=== PATIENT | male | born 1935 | race African-American/Black ===

== ENCOUNTER 2018-01-14 14:31 | Inpatient (IN) | payer OTHER ==
[~2018-01-14] VITALS: Ht 175.3 cm; Wt 108.8 kg
[~2018-01-14 14:31] MED LIST: AMLODIPINE PO; ASPCH81 PO; ATOR-54 PO; CRS20 PO; GLC500 PO; GLIPIZIDE PO; LSN/2025 PO; PSYL55.43
[2018-01-14] MEDS ORDERED: DILTIAZEM HCL 5 MG/ML 5 ML VIAL IV STA (14:58)
[2018-01-14 15:05] LABS: ISTAT CREATININE 1.3 mg/dl (0.6-1.3); ISTAT IONIZED CALCIUM 1.18 mmol/l (1.12-1.32); ISTAT POTASSIUM 3.7 mEq/L (3.3-5.0)
[2018-01-14 15:08] LABS: BASO % 0.3 %; BASO ABS # 0.03 K/uL (0-0.2); EOS % 2.1 %; EOS ABS # 0.25 K/uL (0-0.5); HEMOGLOBIN 16.2 g/dL (14.0-18.0); IG# 0.04 K/uL (0.00-0.02); LYMPH % 16.1 %; LYMPH ABS # 1.93 K/uL (1.2-3.4); MEAN CELL VOLUME 83.6 fL (80-100); MEAN CORPUSCULAR HEMOGLOBIN 30.1 pg (25-34); MEAN PLATELET VOLUME 9.6 fL (7.4-10.4); MONO % 8.8 %; MONO ABS # 1.05 K/uL (0.11-0.59); NEUT % 72.4 %; NEUT ABS # 8.69 K/uL (1.4-6.5); PLATELET COUNT 234 K/uL (130-400); RED CELL DISTRIBUTION WIDTH CV 13.3 % (11.5-14.5); RED CELL DISTRIBUTION WIDTH SD 39.9 fL (36.4-46.3); WHITE BLOOD COUNT 11.99 K/uL (4.8-10.8)
--- NOTE | 2018-01-14 15:15 | EMERGENCY ROOM VISIT NOTE ---
History Report prepared by Neisha: Josefina Gibbs Under the Supervision of: Lluvia McgheeO. First contact with patient: 14:40 Chief Complaint: IRREGULAR HEARTBEAT Stated Complaint: IRREGULAR HEART BEAT History of Present Illness The patient is a 82 year old male who presents to the Emergency Room with complaints of a persistent irregular heartbeat which began prior to arrival. He reports that he was schedules to have a stress test today, noting that he has been having low sugar readings lately. The patient states that his lowest sugar reading was about 59. He notes that after he had his EKG performed today, they noticed an irregular heartbeat and suggested that he come to the Emergency Department for further evaluation. The patient reports a history of diabetes. Source of History: patient Onset: today Position: other (heart) Quality: other (irregular heartbeat) Timing: other (persistent) Review of Systems See HPI for pertinent positives & negatives. A total of 10 systems reviewed and were otherwise negative. Past Medical & Surgical Medical Problems: (1) Atrial flutter with rapid ventricular response (2) DIAB JOSUE WO COMPL, TYPE II OR UNSPEC TYPE, NOT UNCNTRLD (3) Diabetes (4) HYPERTENSION NOS (5) PURE HYPERCHOLESTEROLEM Family History Patient reports no known family medical history. Patient did not report any pertinent family history. Social History Smoking Status: Never Smoker Smokeless Tobacco Use: No Alcohol Use: occasionally Marital Status: Occupation Status: retired Current/Historical Medications Scheduled Amlodipine (Norvasc), 2.5 MG PO BID Aspirin (Aspirin Ec), 81 MG PO DAILY Cyanocobalamin (Vitamin B12 100 Mcg), 100 MCG PO DAILY Glipizide (Glipizide Er), 10 MG PO BID Hctz/Lisinopril (Lisinopril/Hctz 20/25 Mg), 1 TAB PO DAILY Metformin HCl (Metformin HCl ER), 1,000 MG PO BID Rosuvastatin Calcium (Crestor), 20 MG PO DAILY Scheduled PRN Psyllium (Metamucil), 1 DOSE PO DAILY PRN for Constipation Allergies Coded Allergies: Clonidine (Verified Allergy, Unknown, 10/22/09) Physical Exam Vital Signs Date Time Temp Pulse Resp B/P (MAP) Pulse Ox O2 Delivery O2 Flow Rate FiO2 01/14/18 16:36 77 20 150/77 98 Room Air 01/14/18 16:10 74 21 133/69 96 Room Air 01/14/18 15:40 82 21 126/69 96 Room Air 01/14/18 15:32 93 22 71/61 92 Room Air 01/14/18 15:25 86 20 84/62 93 Room Air 01/14/18 15:24 94 01/14/18 15:05 124 26 140/77 94 Room Air 01/14/18 14:53 118 27 170/71 93 Room Air 01/14/18 14:47 94 Room Air 01/14/18 14:47 94 Room Air 01/14/18 14:46 94 Room Air 01/14/18 14:35 36.9 71 20 114/59 94 Room Air Physical Exam GENERAL: Patient is awake, alert, and in no acute distress. Patient is resting comfortably and showing no signs of anxiety EYES: The conjunctivae are clear. The pupils are round and reactive. EARS, NOSE, MOUTH AND THROAT: The nose is without any evidence of any deformity. Mucous membranes are moist tongue is midline NECK: The neck is nontender and supple. RESPIRATORY: Normal respiratory effort is noted there is no evidence of wheezing rhonchi or rales CARDIOVASCULAR: Heart sounds are irregular and tachycardic. No definite murmur noted to auscultation. No rubs or gallops. Normal S1, normal S2. GASTROINTESTINAL: The abdomen is soft. Bowel sounds are present in all quadrants. Abdomen is nontender MUSCULOSKELETAL/EXTREMITIES: There is no evidence of gross deformity full range of motion is noted in the hips and shoulders SKIN: Pedal edema bilaterally. There is no obvious evidence of any rash. There are no petechiae, pallor or cyanosis noted. NEUROLOGIC: Patient is awake alert and oriented x3 Medical Decision & Procedures ER Provider Diagnostic Interpretation: Radiology results as stated below per my review and radiologist interpretation: SINGLE VIEW CHEST CLINICAL HISTORY: Weakness. Change in mental status FINDINGS: An AP, portable, upright chest radiograph is obtained. No prior studies are available for comparison at the time of dictation. The examination is degraded by portable technique and patient rotation. The the heart is enlarged and there is atherosclerotic calcification of the thoracic aorta. The pulmonary vasculature is noncongested. Nonspecific interstitial thickening is likely chronic. Airspace opacities are present at both lung bases, left greater than right. No large pleural effusion or pneumothorax is seen. The skeletal structures are osteopenic. Degenerative change and scoliosis are noted in the thoracic spine. IMPRESSION: 1. Cardiomegaly without radiographic evidence of congestive failure. 2. Bibasilar airspace opacities are identified, left greater than right. This could represent atelectasis versus an infectious/inflammatory pneumonitis. Clinical correlation will be required. Electronically signed by: Jarred Patrick M.D. 01/14/2018 3:33 PM Dictated Date/Time: 01/14/2018 3:31 PM Laboratory Results 01/14/18 14:50 Test 01/14/18 14:50 01/14/18 14:53 Est Creatinine Clear Calc Drug Dose 44.9 ml/min Estimated GFR () 49.2 Estimated GFR (Non- 42.5 BUN/Creatinine Ratio 14.4 (10-20) Calcium Level 9.6 mg/dl (8.5-10.1) Phosphorus Level 2.2 mg/dl (2.5-4.9) Magnesium Level 1.8 mg/dl (1.8-2.4) Total Bilirubin 0.7 mg/dl (0.2-1) Direct Bilirubin 0.2 mg/dl (0-0.2) Aspartate Amino Transf (AST/SGOT) 14 U/L (15-37) Alanine Aminotransferase (ALT/SGPT) 22 U/L (12-78) Alkaline Phosphatase 93 U/L (45-117) Total Creatine Kinase 141 U/L (39-308) Creatine Kinase MB 3.7 ng/ml (0.5-3.6) Creatine Kinase MB Ratio 2.6 (0-3.0) Troponin I 0.020 ng/ml (0-0.045) Pro-B-Type Natriuretic Peptide 220 pg/ml (0-1800) Total Protein 8.2 gm/dl (6.4-8.2) Albumin 4.0 gm/dl (3.4-5.0) Lipase 162 U/L (73-393) Thyroid Stimulating Hormone (TSH) 2.150 uIu/ml (0.300-4.500) Free Thyroxine 1.01 ng/dl (0.80-1.60) Bedside Hemoglobin 16.3 g/dl (14.0-18.0) Bedside Hematocrit 48 % (42-52) Bedside Sodium 140 mEq/L (135-144) Bedside Potassium 3.7 mEq/L (3.3-5.0) Bedside Chloride 101 mEq/L (101-112) Bedside Total CO2 23 mEq/l (24-31) Anion Gap 21.0 mmol/L (16-25) Bedside Blood Urea Nitrogen 23 mg/dl (7-18) Bedside Creatinine 1.3 mg/dl (0.6-1.3) Bedside Glucose (other) 136 mg/dl (70-99) Bedside Ionized Calcium (Holly) 1.18 mmol/l (1.12-1.32) Laboratory results per my review. Medications Administered Medications (Trade) Dose Ordered Sig/Brian Route Start Time Stop Time Status Last Admin Dose Admin Diltiazem HCl (Cardizem Inj) 10 mg NOW STAT IV 01/14/18 14:58 01/14/18 14:59 DC 01/14/18 15:09 10 MG Sodium Chloride 1,000 ml @ 999 mls/hr Q1H1M STAT IV 01/14/18 15:27 01/14/18 16:27 DC 01/14/18 15:27 999 MLS/HR ECG Per My Interpretation Indication: other (irregular heartbeat) Rate (beats per minute): 106 Rhythm: atrial flutter Findings: LBBB, other (ST segment elevation in anterior leads) Comparison ECG Date: no prior available ED Course 1441: The patient was evaluated in room B3. A complete history and physical examination were performed. 1458: Ordered Diltiazem HCl 10mg IV. 1527: Ordered Sodium Chloride 1000ml @ 999 mls/hr IV. 1548: I discussed the patient's case with Dr. Jimenez, [facility] hospitalist. The patient will be evaluated for further management. 1556: I reevaluated the patient and updated him on test findings and the treatment plan. He verbalized complete understanding and agreement. Medical Decision Prior records/ancillary studies reviewed. Triage Nursing notes reviewed. The patient's history was concerning for palpitations. Differential diagnosis: Etiologies such as premature contractions, electrolyte abnormality, cardiac dysrhythmia, thyroid dysfunction, pulmonary embolism, infection, gastrointestinal, as well as others were entertained. The patient is an 82-year-old male who presented to the emergency department at the request of his primary care physician. The patient was having symptoms of weakness and difficulty breathing with exertion. He was scheduled for a stress test. He was found to be in atrial fibrillation atrial flutter with rapid ventricular response. He was sent to the emergency department for further evaluation. He was treated with IV fluids as well as IV Cardizem. His symptoms improved significantly. I discussed patient's laboratory and radiographic studies with him. I also discussed his case with the on-call [facility] hospitalist. They have agreed to evaluate the patient in the emergency department for further management and disposition. Medication Reconcilliation Current Medication List: was personally reviewed by me Blood Pressure Screening Patient's blood pressure: Normal blood pressure Blood pressure disposition: Did not require urgent referral Consults Time Called: 1549 Consulting Physician: [facility] hospitalist Returned Call: [phone] I discussed the patient's case with [facility] hospitalist. The patient will be evaluated for further management. Impression Primary Impression: Atrial fibrillation with rapid ventricular response Additional Impression: Left bundle branch block Scribe Attestation The scribe's documentation has been prepared under my direction and personally reviewed by me in its entirety. I confirm that the note above accurately reflects all work, treatment, procedures, and medical decision making performed by me. Departure Information Dispostion Being Evaluated By Hospitalist Referrals Sim Blackman M.D. (PCP) Forms HOME CARE DOCUMENTATION FORM, IMPORTANT VISIT INFORMATION Patient Instructions My [facility] Health Problem Qualifiers
[2018-01-14 15:17] LABS: PTT PATIENT 27.2 SECONDS (21.0-31.0)
[2018-01-14] MEDS ORDERED: SODIUM CHLORIDE 0.9% 1000ML 1,000 ML IV STA (15:27)
[2018-01-14 15:28] LABS: CALCIUM 9.6 mg/dl (8.5-10.1); CREATININE 1.49 mg/dl (0.60-1.40); POTASSIUM 3.6 mmol/L (3.5-5.1)
--- NOTE | 2018-01-14 15:34 | DIAGNOSTIC IMAGING REPORT ---
SINGLE VIEW CHEST CLINICAL HISTORY: Weakness. Change in mental status FINDINGS: An AP, portable, upright chest radiograph is obtained. No prior studies are available for comparison at the time of dictation. The examination is degraded by portable technique and patient rotation. The the heart is enlarged and there is atherosclerotic calcification of the thoracic aorta. The pulmonary vasculature is noncongested. Nonspecific interstitial thickening is likely chronic. Airspace opacities are present at both lung bases, left greater than right. No large pleural effusion or pneumothorax is seen. The skeletal structures are osteopenic. Degenerative change and scoliosis are noted in the thoracic spine. IMPRESSION: 1. Cardiomegaly without radiographic evidence of congestive failure. 2. Bibasilar airspace opacities are identified, left greater than right. This could represent atelectasis versus an infectious/inflammatory pneumonitis. Clinical correlation will be required. Electronically signed by: Jarred Patrick M.D. 01/14/2018 3:33 PM Dictated Date/Time: 01/14/2018 3:31 PM
[2018-01-14 15:35] LABS: CKMB 3.7 ng/ml (0.5-3.6); PHOSPHORUS 2.2 mg/dl (2.5-4.9); TOTAL PROTEIN 8.2 gm/dl (6.4-8.2)
[2018-01-14] MEDS ORDERED: METF-841 PO (15:58)
[2018-01-14] MEDS ORDERED: GLIP-199 PO (15:58)
[2018-01-14] MEDS ORDERED: ASPI81TA28 PO (15:58)
[2018-01-14] MEDS ORDERED: ROSU40TA PO (15:58)
[2018-01-14] MEDS ORDERED: PSYL48.59 PO (15:58)
[2018-01-14] MEDS ORDERED: CYAN100T6 PO (15:58)
[2018-01-14] MEDS ORDERED: LSN/2025 PO (15:58)
[2018-01-14] MEDS ORDERED: AMLO-110 PO (15:58)
[2018-01-14] MEDS ORDERED: MAGNESIUM HYDROXIDE SUSP 30 ML UDC PO PRN (16:45)
[2018-01-14] MEDS ORDERED: GLUCOSE 40% GEL 15 GM TUBE PO PRN (16:45)
[2018-01-14] MEDS ORDERED: ALUMINUM/MAGNESIUM/SIMETH (MAALOX MAX) 30 ML UDC PO PRN (16:45)
[2018-01-14] MEDS ORDERED: GLUCOSE 10 TABS/TUBE PO PRN (16:45)
[2018-01-14] MEDS ORDERED: DEXTROSE 50% 50 ML SYR IV PRN (16:45)
[2018-01-14] MEDS ORDERED: ONDANSETRON INJ 2 MG/ML 2 ML VIAL IV PRN (16:45)
[2018-01-14] MEDS ORDERED: GLUCAGON FOR INJ 1 MG VIAL SQ PRN (16:45)
[2018-01-14] MEDS ORDERED: ACETAMINOPHEN 325 MG TAB PO PRN (16:45)
[2018-01-14] MEDS ORDERED: POLYETHYLENE (MIRALAX) 17 GM PACK PO PRN (16:45)
[2018-01-14] MEDS ORDERED: HydrALAZINE HCL 20 MG/ML VIAL IV. PRN (16:45)
--- NOTE | 2018-01-14 17:15 | History and Physical ---
History & Physical Date & Time of Service: Jan 14, 2018 at 16:50 Chief Complaint: Irregular Heart Beat Primary Care Physician: Sim Blackman M.D. History of Present Illness Source: patient, clinic records, hospital records This is an 82 y/o male with a history of HTN, HLD, DM II, prostate cancer, and CKD stage III who presented to the ED on 01/14 with new onset of atrial flutter. The patient had presented to his PCP office for a stress echocardiogram. His baseline EKG had apparently shown a wide complex tachycardia at 154 bpm. The patient was asymptomatic at that time. The EKG was reviewed by Dr. Tidwell and the patient was referred to the ED for further evaluation. EKG in ED shows atrial flutter. The patient denies any palpitations, chest pain, shortness of breath, weakness, fatigue, or dizziness. He denies any acute complaints. He denies any history of atrial flutter or an irregular rhythm to his knowledge. The patient denies fevers, chills, sweats, chest pain, palpitations, claudication, cough, wheezing, shortness of breath, nausea, vomiting, abdominal pain, dysuria, hematuria, urinary retention, paralysis, weakness, numbness and tingling. Past Medical/Surgical History Medical Problems: (1) Atrial flutter with rapid ventricular response (2) DIAB JOSUE WO COMPL, TYPE II OR UNSPEC TYPE, NOT UNCNTRLD (3) Diabetes (4) HYPERTENSION NOS (5) PURE HYPERCHOLESTEROLEM Prostate cancer CKD stage III Surgical history: Tonsillectomy as a child Family History Congestive heart failure Hypertension Social History Smoking Status: Never Smoker Smokeless Tobacco Use: Yes (1 can every 2-3 days) Alcohol Use: occasionally (special occasions only) Drug Use: none Marital Status: , in relationship Housing status: lives with significant other Occupational Status: retired Allergies Coded Allergies: Clonidine (Verified Allergy, Unknown, 10/22/09) Home Medications Scheduled Amlodipine (Norvasc), 2.5 MG PO BID Aspirin (Aspirin Ec), 81 MG PO DAILY Cyanocobalamin (Vitamin B12 100 Mcg), 100 MCG PO DAILY Glipizide (Glipizide Er), 10 MG PO BID Hctz/Lisinopril (Lisinopril/Hctz 20/25 Mg), 1 TAB PO DAILY Metformin HCl (Metformin HCl ER), 1,000 MG PO BID Rosuvastatin Calcium (Crestor), 20 MG PO DAILY Scheduled PRN Psyllium (Metamucil), 1 DOSE PO DAILY PRN for Constipation Review of Systems Constitutional: No fever, No chills, No sweats Eyes: No worsening of vision, No eye pain, No diplopia ENT: No hearing loss, No nasal symptoms, No trouble swallowing Respiratory: No cough, No wheezing, No shortness of breath Cardiovascular: No chest pain, No claudication, No palpitations Abdomen: No pain, No nausea, No vomiting Musculoskeletal: No joint pain, No muscle pain, No swelling Genitourinary - Male: No dysuria, No urinary retention, No hematuria Neurologic: No paralysis, No weakness, No numbness/tingling Integumentary: No rash, No itch, No color change Physical Exam Vital Signs Date Time Temp Pulse Resp B/P (MAP) Pulse Ox O2 Delivery O2 Flow Rate FiO2 01/14/18 16:36 77 20 150/77 98 Room Air 01/14/18 16:10 74 21 133/69 96 Room Air 01/14/18 15:40 82 21 126/69 96 Room Air 01/14/18 15:32 93 22 71/61 92 Room Air 01/14/18 15:25 86 20 84/62 93 Room Air 01/14/18 15:24 94 01/14/18 15:05 124 26 140/77 94 Room Air 01/14/18 14:53 118 27 170/71 93 Room Air 01/14/18 14:47 94 Room Air 01/14/18 14:47 94 Room Air 01/14/18 14:46 94 Room Air 01/14/18 14:35 36.9 71 20 114/59 94 Room Air General appearance: +Obese. Well-developed, well-nourished, no apparent distress Head: Normocephalic, atraumatic Eyes: Normal inspection, PERRL, EOMI ENT: Normal ENT inspection, hearing grossly normal, pharynx normal Neck: Supple, no JVD, trachea midline Respiratory/Chest: +Crackles in bases L>R. Normal breath sounds, no respiratory distress Cardiovascular: +Irregularly irregular, rate controlled. No gallop, no murmur Abdomen/GI: Normal bowel sounds, non-tender, soft Extremities/Musculoskeletal: +Trace pitting edema. Normal inspection, no calf tenderness Neurological/Psych: Alert, normal mood/affect, oriented x 3 Skin: Normal color, warm/dry, no rash Diagnostics Laboratory Results Results Past 24 Hours Test 01/14/18 14:50 01/14/18 14:53 Range/Units White Blood Count 11.99 4.8-10.8 K/uL Red Blood Count 5.38 4.7-6.1 M/uL Hemoglobin 16.2 14.0-18.0 g/dL Hematocrit 45.0 42-52 % Mean Corpuscular Volume 83.6 80-100 fL Mean Corpuscular Hemoglobin 30.1 25-34 pg Mean Corpuscular Hemoglobin Concent 36.0 32-36 g/dl Platelet Count 234 130-400 K/uL Mean Platelet Volume 9.6 7.4-10.4 fL Neutrophils (%) (Auto) 72.4 % Lymphocytes (%) (Auto) 16.1 % Monocytes (%) (Auto) 8.8 % Eosinophils (%) (Auto) 2.1 % Basophils (%) (Auto) 0.3 % Neutrophils # (Auto) 8.69 1.4-6.5 K/uL Lymphocytes # (Auto) 1.93 1.2-3.4 K/uL Monocytes # (Auto) 1.05 0.11-0.59 K/uL Eosinophils # (Auto) 0.25 0-0.5 K/uL Basophils # (Auto) 0.03 0-0.2 K/uL RDW Standard Deviation 39.9 36.4-46.3 fL RDW Coefficient of Variation 13.3 11.5-14.5 % Immature Granulocyte % (Auto) 0.3 % Immature Granulocyte # (Auto) 0.04 0.00-0.02 K/uL Prothrombin Time 10.5 9.0-12.0 SECONDS Prothromb Time International Ratio 1.0 0.9-1.1 Activated Partial Thromboplast Time 27.2 21.0-31.0 SECONDS Partial Thromboplastin Ratio 1.0 Sodium Level 137 136-145 mmol/L Potassium Level 3.6 3.5-5.1 mmol/L Chloride Level 104 98-107 mmol/L Carbon Dioxide Level 22 21-32 mmol/L Anion Gap 11.0 21.0 16-25 mmol/L Blood Urea Nitrogen 21 7-18 mg/dl Creatinine 1.49 0.60-1.40 mg/dl Est Creatinine Clear Calc Drug Dose 44.9 ml/min Estimated GFR () 49.2 Estimated GFR (Non- 42.5 BUN/Creatinine Ratio 14.4 10-20 Random Glucose 132 70-99 mg/dl Calcium Level 9.6 8.5-10.1 mg/dl Phosphorus Level 2.2 2.5-4.9 mg/dl Magnesium Level 1.8 1.8-2.4 mg/dl Total Bilirubin 0.7 0.2-1 mg/dl Direct Bilirubin 0.2 0-0.2 mg/dl Aspartate Amino Transf (AST/SGOT) 14 15-37 U/L Alanine Aminotransferase (ALT/SGPT) 22 12-78 U/L Alkaline Phosphatase 93 45-117 U/L Total Creatine Kinase 141 39-308 U/L Creatine Kinase MB 3.7 0.5-3.6 ng/ml Creatine Kinase MB Ratio 2.6 0-3.0 Troponin I 0.020 0-0.045 ng/ml Pro-B-Type Natriuretic Peptide 220 0-1800 pg/ml Total Protein 8.2 6.4-8.2 gm/dl Albumin 4.0 3.4-5.0 gm/dl Lipase 162 73-393 U/L Thyroid Stimulating Hormone (TSH) 2.150 0.300-4.500 uIu/ml Free Thyroxine 1.01 0.80-1.60 ng/dl Bedside Hemoglobin 16.3 14.0-18.0 g/dl Bedside Hematocrit 48 42-52 % Bedside Sodium 140 135-144 mEq/L Bedside Potassium 3.7 3.3-5.0 mEq/L Bedside Chloride 101 101-112 mEq/L Bedside Total CO2 23 24-31 mEq/l Bedside Blood Urea Nitrogen 23 7-18 mg/dl Bedside Creatinine 1.3 0.6-1.3 mg/dl Bedside Glucose (other) 136 70-99 mg/dl Bedside Ionized Calcium (Holly) 1.18 1.12-1.32 mmol/l Diagnostic Radiology Reviewed the following studies and agree with interpretation as follows: SINGLE VIEW CHEST CLINICAL HISTORY: Weakness. Change in mental status FINDINGS: An AP, portable, upright chest radiograph is obtained. No prior studies are available for comparison at the time of dictation. The examination is degraded by portable technique and patient rotation. The the heart is enlarged and there is atherosclerotic calcification of the thoracic aorta. The pulmonary vasculature is noncongested. Nonspecific interstitial thickening is likely chronic. Airspace opacities are present at both lung bases, left greater than right. No large pleural effusion or pneumothorax is seen. The skeletal structures are osteopenic. Degenerative change and scoliosis are noted in the thoracic spine. IMPRESSION: 1. Cardiomegaly without radiographic evidence of congestive failure. 2. Bibasilar airspace opacities are identified, left greater than right. This could represent atelectasis versus an infectious/inflammatory pneumonitis. Clinical correlation will be required. EKG Reviewed EKG and agree with interpretation as follows: 106 bpm, atrial flutter, LBBB Impression Assessment and Plan 82 y/o male with a history of HTN, HLD, DM II, prostate cancer, and CKD stage III who presented to the ED on 01/14 with new onset of atrial flutter. Pt afebrile on arrival. Pt at times tachycardic up to 150s, then back down to 80s. Pt received diltiazem 10 mg IV x 1 in ED. Pt denies any symptoms. EKG shows atrial flutter and LBBB. No previous EKG to compare, unknown chronicity of LBBB. Troponin negative. CXR with bibasilar airspace opacities L>R. Creatinine mildly elevated above baseline. Potassium, magnesium, TSH WNL. New onset atrial flutter, RVR -Admit to telemetry for observation -Trend cardiac enzymes q8h x 3. First set negative -Echocardiogram -Consult cardiology, appreciate recs -KCl 40 mEq PO x 1. Potassium 3.6 on admission, goal > 4.0 -Heparin drip for now Fluid overload--unknown if h/o CHF, echo ordered -Hold further IVF, received 1L NSS bolus in ED EITAN on CKD stage III -Baseline creatinine 1.2-1.3 -Creatinine 1.49 on admission -Hold lisinopril/HCTZ for now HTN, HLD--stable -Continue ASA, Norvasc 2.5 mg PO BID, Crestor 20 mg PO hs -Lisinopril/HCTZ held due to EITAN -Cover with hydralazine 10 mg IV q6h prn SBP >180 DM II--HgbA1c 7.3 on 12/28/17 -Hold glipizide and metformin. Pt reports increased hypoglycemic episodes. Consider discontinuing glipizide as outpatient as well -Insulin sliding scale -Check BSGs q ac and qhs Prostate cancer--noted. Pt denies any h/o prostatectomy, chemo or radiation. Being monitored by urology DVT prophylaxis -Heparin drip -THERESA hose and SCDs Code Status -Level I, FULL RESUSCITATION STATUS I personally interviewed and examined the patient. I agree with history of present illness and physical exam mentioned above, I also performed my own history taking and examination. Past medical history and review of system has been obtained by myself I reviewed all pertinent labs and studies Reviewed current medications I discussed and formulated of the assessment and plan mentioned above. Please refer to the Summary mentioned below. 82-year-old man with past medical history of hypertension, diabetes mellitus type 2, prostate cancer, dyslipidemia, chronic kidney disease stage III. Patient was doing a stress echo and his PCP office when he was found to have atrial fibrillation with RVR, he was sent to the ED in the ED was found to have atrial flutter, EKG from PCP office is not available. Patient was started on heparin, 2D echo was ordered, pitch worker consulted. Patient also was instructed to have sleep study as an outpatient Currently rate controlled and appeared to be comfortable General Appearance: not in acute distress Eyes: normal Sclerae, extraocular muscle intact ENT: hearing grossly normal Neck: supple Respiratory/Chest: normal air entry bilateral ,no respiratory distress, no accessory muscle use Cardiovascular: Irregular irregularity, currently rate controlled no murmur Abdomen: non tender, soft, no masses Extremities: no edema musculoskeletal: no significant swelling or inflammation in any joint Neurologic/Psychiatric: Awake alert oriented times place and person moves all extremities sensation intact cranial nerves II-12 appear to be intact Skin: normal color, warm/dry, no rash Carlyle Be MD, [facility] Hospitalist group Resuscitation Status VTE Prophylaxis Will order VTE Prophylaxis: Yes
[2018-01-14 18:00] VITALS: BP 137/72; PULSE 97; TEMP 36.6; O2SAT 97
[2018-01-14 18:11] VITALS: Ht 175.3 cm; Wt 108.8 kg
[2018-01-14 18:12] VITALS: BP 137/72; PULSE 103
[2018-01-14] MEDS ORDERED: POTASSIUM CHLORIDE 20 MEQ TABCR PO ONE (18:15)
[2018-01-14 18:23] VITALS: O2SAT 97
[2018-01-14] MEDS ORDERED: IV FLUIDS COMPLETED PRN (18:45)
[2018-01-14 19:23] LABS: BASO % 0.3 %; BASO ABS # 0.03 K/uL (0-0.2); EOS % 2.5 %; EOS ABS # 0.27 K/uL (0-0.5); IG# 0.02 K/uL (0.00-0.02); LYMPH % 17.9 %; LYMPH ABS # 1.93 K/uL (1.2-3.4); MEAN CELL VOLUME 84.8 fL (80-100); MEAN CORPUSCULAR HEMOGLOBIN 29.6 pg (25-34); MEAN PLATELET VOLUME 9.6 fL (7.4-10.4); MONO % 7.1 %; MONO ABS # 0.77 K/uL (0.11-0.59); NEUT ABS # 7.76 K/uL (1.4-6.5); PLATELET COUNT 211 K/uL (130-400); RED CELL DISTRIBUTION WIDTH CV 13.4 % (11.5-14.5); RED CELL DISTRIBUTION WIDTH SD 41.1 fL (36.4-46.3); WHITE BLOOD COUNT 10.78 K/uL (4.8-10.8)
[2018-01-14 19:36] LABS: PTT PATIENT 27.8 SECONDS (21.0-31.0)
[2018-01-14] MEDS: HEPARIN 25,000 UNIT/500ML D5W 500 ML IV SCH (19:39)
[2018-01-14 19:40] LABS: MEAN CORPUSCULAR HGB CONC 34.9 g/dl (32-36)
[2018-01-14 20:02] VITALS: BP 107/66; PULSE 79; TEMP 36.4; O2SAT 95
[2018-01-14] MEDS: METOPROLOL TARTRATE 25 MG TAB PO SCH (20:25)
[2018-01-14] MEDS: INSULIN ASPART 100 UNITS/ML 3 ML PEN SC SCH (20:34)
[2018-01-14] MEDS ORDERED: AMLODIPINE BESYLATE 5 MG TAB PO SCH (21:00)
[2018-01-14 23:16] LABS: CKMB 2.8 ng/ml (0.5-3.6)
[2018-01-14 23:33] VITALS: BP 120/68; PULSE 75; TEMP 36.5; O2SAT 96
[2018-01-15] VITALS (11 sets, daily range): BP systolic 112–156; BP diastolic 53–86; PULSE 65–89; TEMP 36.3–36.8; O2SAT 94–99
[2018-01-15 02:28] LABS: PTT PATIENT 47.2 SECONDS (21.0-31.0)
[2018-01-15 07:08] LABS: HEMATOCRIT 42.2 % (42-52); HEMOGLOBIN 14.9 g/dL (14.0-18.0); MEAN CELL VOLUME 83.9 fL (80-100); MEAN CORPUSCULAR HEMOGLOBIN 29.6 pg (25-34); MEAN CORPUSCULAR HGB CONC 35.3 g/dl (32-36); MEAN PLATELET VOLUME 10.1 fL (7.4-10.4); PLATELET COUNT 209 K/uL (130-400); RED CELL DISTRIBUTION WIDTH CV 13.3 % (11.5-14.5); RED CELL DISTRIBUTION WIDTH SD 40.2 fL (36.4-46.3); WHITE BLOOD COUNT 8.16 K/uL (4.8-10.8)
[2018-01-15 07:42] LABS: CALCIUM 8.9 mg/dl (8.5-10.1); CREATININE 1.28 mg/dl (0.60-1.40); POTASSIUM 3.8 mmol/L (3.5-5.1)
[2018-01-15] MEDS: ASPIRIN 81 MG ECTAB PO SCH (07:42)
[2018-01-15] MEDS: METOPROLOL TARTRATE 25 MG TAB PO SCH ×2 (07:43→20:11)
[2018-01-15] MEDS: CYANOCOBALAMIN 100 MCG TAB (VIT B-12) PO SCH (07:43)
[2018-01-15] MEDS: ROSUVASTATIN CALCIUM 20 MG TAB PO SCH (07:44)
[2018-01-15 07:50] LABS: CKMB 2.7 ng/ml (0.5-3.6); PHOSPHORUS 2.8 mg/dl (2.5-4.9)
[2018-01-15] MEDS: INSULIN ASPART 100 UNITS/ML 3 ML PEN SC SCH ×4 (07:52→21:00)
[2018-01-15] MEDS ORDERED: MAGNESIUM SULFATE 1GM / D5W 100 ML IV STA (08:08)
--- NOTE | 2018-01-15 10:25 | ECHOCARDIOGRAM REPORT ---
*NOTICE TO RECEIVING [employer] This information is strictly Confidential and protected under [place] law. [place] law prohibits you from making any further disclosure of this information unless further disclosure is expressly permitted by the written consent of the person to whom it pertains or is authorized by law. A general authorization for the release of medical or other information is not sufficient for this purpose. Hospital accepts no responsibility if the information is made available to any other person, INCLUDING THE PATIENT. Interpretation Summary * Name: ANASTACIO WOOTEN Study Date: 01/15/2018 07:07 AM BP: 116/62 mmHg * Patient Location: [facility] HR: 83 * : 1935 (M/d/yyyy) Gender: Male Height: 69 in * Age: 82 yrs Ethnicity: AA Weight: 240 lb * Ordering Physician: Lina Saxena PA-C * Performed By: Jud Latham RDCS * * Reason For Study: A-Flutter * BSA: 2.2 m2 * -- Conclusions -- * Left ventricular systolic function is severely reduced. * Ejection Fraction = 20-25%. 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 Other stanford hypokinetic. * There is mild mitral regurgitation. Procedure Details * A complete two-dimensional transthoracic echocardiogram was performed (2D, M-mode, Doppler and color flow Doppler). Left Ventricle * The left ventricle is mildly dilated. * There is normal left ventricular wall thickness. * Ejection Fraction = 20-25%. * Left ventricular systolic function is severely reduced. 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 Other stanford hypokinetic. * Septal motion is consistent with conduction abnormality. Right Ventricle * The right ventricle is grossly normal size. * The right ventricular systolic function is normal as assessed by tricuspid annular plane systolic excursion (TAPSE) (normal >1.5 cm). Atria * The left atrium is mildly dilated. * Right atrium not well visualized. * There is no evidence of atrial septal defect, but resolution does not allow assessment for a patent foramen ovale. Mitral Valve * The mitral valve is grossly normal. * There is no mitral valve stenosis. * There is mild mitral regurgitation. Tricuspid Valve * The tricuspid valve is not well visualized, but is grossly normal. * There is no tricuspid stenosis. * Significant tricuspid regurgitation is absent. Aortic Valve * The aortic valve is trileaflet. * The aortic valve opens well. * Aortic valve sclerosis moderate, without significant aortic valvular stenosis. * No aortic regurgitation is present. Pulmonic Valve * The pulmonary valve is not well seen, but the Doppler examination is normal without significant regurgitation or stenosis. Great Vessels * Borderline aortic root dilatation. * The pulmonary is not well visualized. Pericardium/Pleural * There is no pericardial effusion. Great Vessels * Normal inferior vena cava size and collapsability with sniff indicates a normal right atrial pressure of 3 mmHg MMode 2D Measurements and Calculations IVSd 1.1 cm LVIDd 5.5 cm LVIDs 4.8 cm LVPWd 1.2 cm IVS/LVPW 0.95 FS 12.9 % EDV(Teich) 148.9 ml ESV(Teich) 108.2 ml EF(Teich) 27.3 % EDV(cubed) 168.5 ml ESV(cubed) 111.5 ml EF(cubed) 33.8 % LV mass(C)d 256.1 grams LV mass(C)dI 114.7 grams/m\S\2 SV(Teich) 40.6 ml SI(Teich) 18.2 ml/m\S\2 SV(cubed) 57.0 ml SI(cubed) 25.5 ml/m\S\2 Ao root diam 3.4 cm Ao root area 9.2 cm\S\2 ACS 1.8 cm LA dimension 3.6 cm asc Aorta Diam 2.9 cm LA/Ao 1.0 LVOT diam 2.1 cm LVOT area 3.4 cm\S\2 LVAd ap4 34.8 cm\S\2 LVLd ap4 8.4 cm EDV(MOD-sp4) 119.8 ml EDV(sp4-el) 122.2 ml LVAs ap4 30.3 cm\S\2 LVLs ap4 8.0 cm ESV(MOD-sp4) 94.4 ml ESV(sp4-el) 97.9 ml EF(MOD-sp4) 21.2 % EF(sp4-el) 19.8 % LVAd ap2 41.8 cm\S\2 LVLd ap2 9.3 cm EDV(MOD-sp2) 154.4 ml EDV(sp2-el) 158.5 ml LVAs ap2 34.2 cm\S\2 LVLs ap2 8.1 cm ESV(MOD-sp2) 119.2 ml ESV(sp2-el) 122.2 ml EF(MOD-sp2) 22.8 % EF(sp2-el) 22.9 % LVLd %diff 9.8 % EDV(MOD-bp) 143.2 ml LVLs %diff 2.4 % ESV(MOD-bp) 107.7 ml EF(MOD-bp) 24.8 % SV(MOD-sp4) 25.4 ml SI(MOD-sp4) 11.4 ml/m\S\2 SV(MOD-sp2) 35.2 ml SI(MOD-sp2) 15.8 ml/m\S\2 SV(MOD-bp) 35.5 ml SI(MOD-bp) 15.9 ml/m\S\2 SV(sp4-el) 24.2 ml SI(sp4-el) 10.9 ml/m\S\2 SV(sp2-el) 36.3 ml SI(sp2-el) 16.3 ml/m\S\2 Doppler Measurements and Calculations MV E max madi 123.7 cm/sec MV dec time 0.15 sec Ao V2 max 108.6 cm/sec Ao max PG 4.7 mmHg Ao max PG (full) 1.7 mmHg MILI(V,A) 2.7 cm\S\2 MILI(V,D) 2.7 cm\S\2 LV V1 max PG 3.0 mmHg LV V1 max 87.3 cm/sec PA V2 max 67.9 cm/sec PA max PG 1.8 mmHg PA acc slope 745.1 cm/sec\S\2 PA acc time 0.08 sec PI max madi 165.6 cm/sec PI max PG 11.0 mmHg PI dec slope 303.3 cm/sec\S\2 PI P1/2t 159.9 msec TR max madi 203.6 cm/sec PA pr(Accel) 44.1 mmHg
--- NOTE | 2018-01-15 10:53 | Hospitalist Progress Note ---
Hospitalist Progress Note Date of Service January 15, 2018. (Nayeli Wilson .MAURISIO) Subjective Pt evaluation today including: conversation w/ patient, physical exam, chart review, lab review, conversation w/ benefits sales consultant, review of inpatient medication list Voiding: no voiding problems Mr. Smith denies any symptoms and did not have any at the time of his rapid heart rate. He did have a brief 9 beat run of Vtach this morning which was also asymptomatic. Dr. Dacosta was bedside to discuss his recommendation for a cath this afternoon, which Mr. Smith agreed to. He did say that in the past he has felt like he was hypoglycemic when he wasn't and wondered if that might have been something to do with his heart. ROS Constitutional: no chills, aches, sweats or fever Respiratory: no sob,cough, sputum, or wheezing Cardiac: no chest pain, palpitations, edema, orthopnea or lightheadedness GI: no abdominal pain, nausea, vomiting, diarrhea or constipation : no dysuria or hesitancy Extremities: no joint pain or weakness Skin: no rash All other systems reviewed and negative (Nayeli Wilson CRNP) Medications Medications Administered Medications (Trade) Dose Ordered Sig/Brian Route Start Time Stop Time Status Last Admin Dose Admin Diltiazem HCl (Cardizem Inj) 10 mg NOW STAT IV 01/14/18 14:58 01/14/18 14:59 DC 01/14/18 15:09 10 MG Sodium Chloride 1,000 ml @ 999 mls/hr Q1H1M STAT IV 01/14/18 15:27 01/14/18 16:27 DC 01/14/18 15:27 999 MLS/HR Aspirin (Ecotrin Tab) 81 mg DAILY PO 01/15/18 09:00 02/14/18 08:59 01/15/18 07:42 81 MG Cyanocobalamin (Vitamin B-12 Tab) 100 mcg DAILY PO 01/15/18 09:00 02/14/18 08:59 01/15/18 07:43 100 MCG Rosuvastatin Calcium (Crestor Tab) 20 mg DAILY PO 01/15/18 09:00 02/14/18 08:59 01/15/18 07:44 20 MG Potassium Chloride (Klor-Con Tab) 40 meq 1815 ONCE PO 01/14/18 18:15 01/14/18 18:16 DC 01/14/18 18:43 40 MEQ Insulin Aspart (novoLOG ASPART) SLIDING SCALE G... ACHS SC 01/14/18 21:00 02/13/18 20:59 01/15/18 07:52 6 UNITS Metoprolol Tartrate (Lopressor Tab) 12.5 mg BID PO 01/14/18 21:00 02/13/18 20:59 01/15/18 07:43 12.5 MG Heparin Sodium/ Dextrose 500 ml @ 31 mls/hr Q16H8M IV 01/14/18 19:15 02/13/18 19:14 01/14/18 19:39 31 MLS/HR (Nayeli Wilson, MAURISIO) Objective Vital Signs Date Time Temp Pulse Resp B/P (MAP) Pulse Ox O2 Delivery O2 Flow Rate FiO2 01/15/18 06:26 86 17 113/73 (86) 96 Room Air 01/15/18 04:05 36.4 87 18 116/62 (80) 94 Room Air 01/15/18 04:00 Room Air 01/15/18 00:01 Room Air 01/14/18 23:33 36.5 75 17 120/68 (85) 96 Room Air 01/14/18 20:02 36.4 79 18 107/66 (80) 95 Room Air 01/14/18 20:00 Room Air 01/14/18 18:23 97 Room Air 01/14/18 18:12 103 18 137/72 01/14/18 18:00 36.6 97 18 137/72 (93) 97 Room Air 01/14/18 17:04 97 22 135/70 94 Room Air 01/14/18 16:36 77 20 150/77 98 Room Air 01/14/18 16:10 74 21 133/69 96 Room Air 01/14/18 15:40 82 21 126/69 96 Room Air 01/14/18 15:32 93 22 71/61 92 Room Air 01/14/18 15:25 86 20 84/62 93 Room Air 01/14/18 15:24 94 01/14/18 15:05 124 26 140/77 94 Room Air 01/14/18 14:53 118 27 170/71 93 Room Air 01/14/18 14:47 94 Room Air 01/14/18 14:47 94 Room Air 01/14/18 14:46 94 Room Air 01/14/18 14:35 36.9 71 20 114/59 94 Room Air (Nayeli Wilson CRNP) Physical Exam Notes: General: no distress Eyes: normal inspection, PERLL Respiratory: chest non tender, clear to auscultation, normal breath sounds, no respiratory distress, no accessory muscle use Cardiac: regular rate and rhythm, no rub or gallop, no murmur, no edema, no jvd GI/: active bowel sounds, no abd pain or tenderness, soft, non distended Extremities: normal range of motion, normal strength, non tender Neuro/Psych: alert and oriented x 3, normal mood and affect Skin: normal color, dry (Nayeli Wilson CRNP) Laboratory Results Last 24 Hours Test 01/14/18 14:50 01/14/18 14:53 01/14/18 16:50 01/14/18 19:02 White Blood Count 11.99 K/uL 10.78 K/uL Red Blood Count 5.38 M/uL 5.07 M/uL Hemoglobin 16.2 g/dL 15.0 g/dL Hematocrit 45.0 % 43.0 % Mean Corpuscular Volume 83.6 fL 84.8 fL Mean Corpuscular Hemoglobin 30.1 pg 29.6 pg Mean Corpuscular Hemoglobin Concent 36.0 g/dl 34.9 g/dl Platelet Count 234 K/uL 211 K/uL Mean Platelet Volume 9.6 fL 9.6 fL Neutrophils (%) (Auto) 72.4 % 72.0 % Lymphocytes (%) (Auto) 16.1 % 17.9 % Monocytes (%) (Auto) 8.8 % 7.1 % Eosinophils (%) (Auto) 2.1 % 2.5 % Basophils (%) (Auto) 0.3 % 0.3 % Neutrophils # (Auto) 8.69 K/uL 7.76 K/uL Lymphocytes # (Auto) 1.93 K/uL 1.93 K/uL Monocytes # (Auto) 1.05 K/uL 0.77 K/uL Eosinophils # (Auto) 0.25 K/uL 0.27 K/uL Basophils # (Auto) 0.03 K/uL 0.03 K/uL RDW Standard Deviation 39.9 fL 41.1 fL RDW Coefficient of Variation 13.3 % 13.4 % Immature Granulocyte % (Auto) 0.3 % 0.2 % Immature Granulocyte # (Auto) 0.04 K/uL 0.02 K/uL Prothrombin Time 10.5 SECONDS 10.6 SECONDS Prothromb Time International Ratio 1.0 1.0 Activated Partial Thromboplast Time 27.2 SECONDS 27.8 SECONDS Partial Thromboplastin Ratio 1.0 1.1 Sodium Level 137 mmol/L Potassium Level 3.6 mmol/L Chloride Level 104 mmol/L Carbon Dioxide Level 22 mmol/L Anion Gap 11.0 mmol/L 21.0 mmol/L Blood Urea Nitrogen 21 mg/dl Creatinine 1.49 mg/dl Est Creatinine Clear Calc Drug Dose 44.9 ml/min Estimated GFR () 49.2 Estimated GFR (Non- 42.5 BUN/Creatinine Ratio 14.4 Random Glucose 132 mg/dl Calcium Level 9.6 mg/dl Phosphorus Level 2.2 mg/dl Magnesium Level 1.8 mg/dl Total Bilirubin 0.7 mg/dl Direct Bilirubin 0.2 mg/dl Aspartate Amino Transf (AST/SGOT) 14 U/L Alanine Aminotransferase (ALT/SGPT) 22 U/L Alkaline Phosphatase 93 U/L Total Creatine Kinase 141 U/L Creatine Kinase MB 3.7 ng/ml Creatine Kinase MB Ratio 2.6 Troponin I 0.020 ng/ml Pro-B-Type Natriuretic Peptide 220 pg/ml Total Protein 8.2 gm/dl Albumin 4.0 gm/dl Lipase 162 U/L Thyroid Stimulating Hormone (TSH) 2.150 uIu/ml Free Thyroxine 1.01 ng/dl Bedside Hemoglobin 16.3 g/dl Bedside Hematocrit 48 % Bedside Sodium 140 mEq/L Bedside Potassium 3.7 mEq/L Bedside Chloride 101 mEq/L Bedside Total CO2 23 mEq/l Bedside Blood Urea Nitrogen 23 mg/dl Bedside Creatinine 1.3 mg/dl Bedside Glucose (other) 136 mg/dl Bedside Ionized Calcium (Holly) 1.18 mmol/l Urine Color YELLOW Urine Appearance CLEAR Urine pH 5.0 Urine Specific [place] 1.017 Urine Protein 1+ Urine Glucose (UA) NEG Urine Ketones NEG Urine Occult Blood NEG Urine Nitrite NEG Urine Bilirubin NEG Urine Urobilinogen NEG Urine Leukocyte Esterase TRACE Urine WBC (Auto) 1-5 /hpf Urine RBC (Auto) 0-4 /hpf Urine Hyaline Casts (Auto) 1-5 /lpf Urine Epithelial Cells (Auto) 10-20 /lpf Urine Bacteria (Auto) NEG Test 01/14/18 20:28 01/14/18 22:43 01/15/18 01:21 01/15/18 06:51 Bedside Glucose 127 mg/dl Total Creatine Kinase 123 U/L 123 U/L Creatine Kinase MB 2.8 ng/ml 2.7 ng/ml Creatine Kinase MB Ratio 2.3 2.2 Troponin I 0.036 ng/ml 0.033 ng/ml Activated Partial Thromboplast Time 47.2 SECONDS Partial Thromboplastin Ratio 1.8 White Blood Count 8.16 K/uL Red Blood Count 5.03 M/uL Hemoglobin 14.9 g/dL Hematocrit 42.2 % Mean Corpuscular Volume 83.9 fL Mean Corpuscular Hemoglobin 29.6 pg Mean Corpuscular Hemoglobin Concent 35.3 g/dl RDW Standard Deviation 40.2 fL RDW Coefficient of Variation 13.3 % Platelet Count 209 K/uL Mean Platelet Volume 10.1 fL Sodium Level 137 mmol/L Potassium Level 3.8 mmol/L Chloride Level 105 mmol/L Carbon Dioxide Level 24 mmol/L Anion Gap 8.0 mmol/L Blood Urea Nitrogen 20 mg/dl Creatinine 1.28 mg/dl Est Creatinine Clear Calc Drug Dose 52.1 ml/min Estimated GFR () 59.2 Estimated GFR (Non- 51.1 BUN/Creatinine Ratio 15.5 Random Glucose 150 mg/dl Calcium Level 8.9 mg/dl Phosphorus Level 2.8 mg/dl Magnesium Level 1.7 mg/dl Test 01/15/18 07:29 Bedside Glucose 159 mg/dl (Nayeli Wilson, MAURISIO) Assessment and Plan Mr. Smith is an 82 year old man here for A.flutter with RVR A.flutter RVR - continue telemetry monitoring - consulted cardiology - plan is for cath this afternoon. - Echo showed: Left ventricular systolic function is severely reduced. * Ejection Fraction = 20-25%. 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 Other stanford hypokinetic. * There is mild mitral regurgitation. - NSR since converting in the ED last evening except for 9 beat run of Vtach - will correct electrolytes as below - continue Heparin gtt until after cath, then convert to NOAC - continue ASA, BB, will restart lisinopril/hctz after cath Hypomagnesemia - 1 gm mag IV - repeat am EITAN on CKD stage III - resolved -Baseline creatinine 1.2-1.3 -Creatinine 1.49 on admission, now wnl -Hold lisinopril/HCTZ until after cath HTN, HLD--stable -Continue ASA, Norvasc 2.5 mg PO BID, Crestor 20 mg PO hs -Lisinopril/HCTZ held due to EITAN -Cover with hydralazine 10 mg IV q6h prn SBP >180 DM II--HgbA1c 7.3 on 12/28/17 -Hold glipizide and metformin. -Insulin sliding scale -Check BSGs q ac and qhs Prostate cancer--noted. Pt denies any h/o prostatectomy, chemo or radiation. Being monitored by urology DVT prophylaxis -Heparin drip -THERESA thompson and SCDs Code Status -Level I, FULL RESUSCITATION STATUS (Nayeli Wilson ., MAURISIO) MACHINE PULLER Physician Supervision Note: I interviewed and examined the patient. Discussed with Nayeli Wilson NP and agree with findings and plan as documented in the note. Any exceptions or clarifications are listed here: None This patient presented with atrial flutter echocardiogram showed severe depression of his EF catheterization revealed three-vessel coronary disease with plans for catheterization and intervention on 01/16 patient otherwise no complaints he is not longer short of breath is no chest pain vital signs show temp 36 4 pulse 86 respiration rate 17 BP 113/73 Cardiac exam is regular lungs are clear without crackles at the base abdomen is normoactive bowel sounds there is a strong smell urine in his room and a urine culture was obtained results are pending Documented By: Umesh Vasquez (Umesh Vasquez M.D.)
[2018-01-15] MEDS: HEPARIN 25,000 UNIT/500ML D5W 500 ML IV SCH (10:56)
[2018-01-15] MEDS ORDERED: NiCARDipine HCL INJ 2.5 MG/ML 10 ML AMP ONE (11:39)
[2018-01-15] MEDS ORDERED: NITROGLYCERIN/D5W 100MCG/ML 20ML SYR ONE (11:39)
[2018-01-15] MEDS ORDERED: HEPARIN SOD (PORCINE) 1000 UNIT/ML 10 ML VIAL ONE (11:39)
[2018-01-15] MEDS ORDERED: FENTANYL CITRATE INJ 50 MCG/1 ML 2 ML VIAL ONE (11:40)
[2018-01-15] MEDS ORDERED: MIDAZOLAM HCL 1 MG/ML 2ML VIAL ONE (11:40)
[2018-01-15] MEDS ORDERED: ADENOSINE IV SOLN 3 MG/ML 20 ML VIAL ONE (12:45)
--- NOTE | 2018-01-15 14:09 | Post Sedation Assessment ---
Post Sedation Assessment General Date of Sedation January 15, 2018. Vital Signs: Vital Signs Past 12 Hours Date Time Temp Pulse Resp B/P (MAP) Pulse Ox O2 Delivery O2 Flow Rate FiO2 01/15/18 13:55 79 16 156/77 (103) 97 Room Air 01/15/18 13:41 79 16 122/86 (98) 99 Room Air 01/15/18 13:26 36.5 65 16 144/82 (102) 95 Room Air 01/15/18 13:10 62 16 118/60 (79) 96 Room Air 01/15/18 12:55 65 16 122/65 (84) 96 Room Air 01/15/18 08:00 Room Air 01/15/18 06:26 86 17 113/73 (86) 96 Room Air 01/15/18 04:05 36.4 87 18 116/62 (80) 94 Room Air 01/15/18 04:00 Room Air Post Procedure Recovery Score Activity: (2) Moves 4 extremities * Respiration: (2) Deep breath/cough Circulation: (2) +/-20% PreAnes Value Consciousness: (2) Fully Awake Oxygen Saturation: (2) > 92% On Room Air Post Anesthesia Score: 10 Discharge Sedation Level of Care: Fast Track Phase II Post Sedation Plan On clinical assessment, the patient appears to have tolerated the sedation without complications. Patient is recovering as anticipated. Patient will continue to be monitored by nursing and may be discharged when sedation discharge criteria are met per below protocol. Upon Completions of procedure and additional 15 minutes continue every 5 minute vital signs and the P.A.R. score; then discharge to a Phase I or Fast Track to Phase II per the following guidelines: * Discharge Patient to appropriate Phase II area if PAR is 8 or greater or return to pre- procedure baseline. The post - procedure orders will be as directed. * If PAR score is less than 8 or not return to pre-procedure baseline then patient will follow Phase I monitoring till PAR is reached for Phase II. The Phase I may be done in procedure room or may call to secure a Phase I area. * If naloxone or flumazenil are used for reversal, hold in Phase I for an additional 60 -120 minutes before discharge to Phase II. Please call the Sedation Physician to re-evaluate and complete post-note for discharge to Phase II area. Do NOT discharge from procedure sedation or Phase 1 until post- sedation evaluation note is complete by procedure /sedation MD Sedation Discharge Instructions to be given to the patient at discharge to home.
--- NOTE | 2018-01-15 14:09 | Pre Sedation Assessment ---
Pre Sedation Assessment General Date of Sedation: January 15, 2018. Vital Signs Past 12 Hours Date Time Temp Pulse Resp B/P (MAP) Pulse Ox O2 Delivery O2 Flow Rate FiO2 01/15/18 13:55 79 16 156/77 (103) 97 Room Air 01/15/18 13:41 79 16 122/86 (98) 99 Room Air 01/15/18 13:26 36.5 65 16 144/82 (102) 95 Room Air 01/15/18 13:10 62 16 118/60 (79) 96 Room Air 01/15/18 12:55 65 16 122/65 (84) 96 Room Air 01/15/18 08:00 Room Air 01/15/18 06:26 86 17 113/73 (86) 96 Room Air 01/15/18 04:05 36.4 87 18 116/62 (80) 94 Room Air 01/15/18 04:00 Room Air Review Cardiovascular: regular rate, rhythm, no edema Lungs: chest non-tender, lungs clear Pre-Sedation Airway Assessment Smoking Status: Never Smoker Hx of Sleep Apnea: No Hx of difficult intubation: No Short Thick Neck: No Thyro-mental Distance: > 3 Finger Breadths Oral Cavity: WNL Mallampati Classification: Class II ASA Classification: Class III NPO Status Date of Last Intake of Fluids: January 15, 2018 Time of Last Intake of Fluids: 744 Date of Last Intake of Solids: January 15, 2018 Time of Last Intake of Solids: 744 Procedure Planning Contraindications for Sedation: None Current Medications Reviewed: Yes Notes The planned sedation has been discussed with the patient. Informed Consent was obtained. I have identified the patient, determined the appropriateness of sedation and have assessed the patient immediately prior to the procedure. All medicine(s) and interventions are by my order.
--- NOTE | 2018-01-15 14:20 | Cardiac Catheterization ---
Procedure Note Procedure Date January 15, 2018. Pre-Procedure Diagnosis Cardiomyopathy AUC Score 7 Post-Procedure Diagnosis Severe CAD, Elevated Intracardiac Pressures Procedure(s) Performed Coronary Angiography, Left Heart Cath, Fractional Flow [place] [employer] Handler(s) [place] Estimated Blood Loss 15 Medication(s) Fentanyl, Heparin, Nicardipine, Nitroglycerin, Versed, Lidocaine 1% Summary of Findings Indication: New severe LV dysfunction with regional wall motion abnormalities Access: 6 FR right radial artery Catheters: [place], JL 3.5; EBU 3.5 guide Findings: LM - short, almost separate ostium angiographically normal LAD - moderate caliber vessel, proximal luminal irregularities, 30-40% mid segment disease, 70% early-distal segment disease, distal luminal irregularities Circumflex - chronic total occlusion of distal segment into om 2. Om 2 fills retrograde via [id number] collaterals (short segment of occlusion) RCA - dominant, large caliber vessel, severe diffuse mid segment disease up to 90%, diffuse [id number] distal disease into right PDA LVEDP - 19 iFR of early-distal LAD performed EBU 3.5 guide IFR 0.71 Coronary angiography revealed no postprocedure complications Arterial Closure: TR band Summary: 1. Severe multivessel coronary artery disease - 90% mid RCA - 100% chronic occlusion of distal circumflex into OM 2 which fills via left- to-left collaterals - 70% early-distal LAD 2. Borderline elevated intracardiac filling pressure Recommendations: Further discussion regarding possible bypass surgery in patient with 3 vessel disease, new LV dysfunction and diabetes. Lesions appear amenable to PCI and could be considered in setting of low syntax score and age. Hemodynamics Rest Ao: 115/62/85 Final Ao: 122/56/84 LV: 118/19 Recommendations PCI without planned CABG Specimens None Radiation Exposure (mGy) 2868 Contrast (mls) 135 Fluids (cc crystalloids) 144 Drains None Anesthesia Moderate Procedural Complication(s) None Disposition PCU ACC Data Cardiac Status Clinical evaluation leading to the procedure CAD Presntation: Stable angina Anginal Classification: CCS III Heart Failure: No, NYHA Class: CCS I Cardiogenic Shock w/in 24Hrs: No Cardiac Arrest w/in 24Hrs: No Imaging studies past 6 months: Yes Stress studies past 6 months: No Closure Device Percutaneous Entry Location: Radial Closure Device: Radial Band Recommendations: PCI without planned CABG Intraprocedure Events Significant Dissection: No Perforation: No
[2018-01-15] MEDS: SODIUM CHLORIDE 0.9% 1000ML 1,000 ML IV SCH (16:48)
--- NOTE | 2018-01-15 18:04 | Cardiology Consultation ---
Cardiology Consultation Date of Consultation: January 15, 2018. Attending Physician: Christina Reason for Consultation: Newly recognized atrial flutter Pt evaluation today including: conversation w/ patient, conversation w/ family , physical exam, chart review, lab review, review of studies, review of inpatient medication list, conversation w/ attending History of Present Illness Mr. Blum a very pleasant 82-year-old man with a history hypertension, dyslipidemia, stage 3 chronic kidney disease, type 2 diabetes on oral therapy who was admitted yesterday from the outpatient cardiology clinic in the setting of newly recognized atrial flutter with rapid ventricular response. Patient was being seen yesterday for an exercise stress echo in the setting exertional shortness of breath occurring for months most notable over the last several weeks. At time plan study patient was asymptomatic and denied palpitations, chest pain or shortness of breath. On initial EKG was noted to have a wide complex rhythm in the 150s which was thought to be likely atrial flutter and was sent to [facility] for further evaluation. Patient received IV diltiazem in the ED and eventually converted to sinus rhythm yesterday evening. Cardiac enzymes remain negative and otherwise asymptomatic overnight. Today had an echocardiogram which showed severe LV dysfunction with regional wall motion abnormalities including akinetic inferior, inferolateral stanford. In the setting of echo findings, risk factors and symptoms decision made to proceed with cardiac catheterization. Patient found to have severe 3 vessel disease including 90% mid RCA, 70% early distal LAD disease and occluded distal circumflex into OM 2 which filled via [id number] collaterals. Past Medical/Surgical History Type 2 diabetes, hypertension, dyslipidemia, stage 3 chronic kidney disease, obesity Family History Congestive heart failure Hypertension Noncontributory based on age and his on medical issues Social History Smoking Status: Never Smoker History of Alcohol Use: No and lives with his . Chews tobacco. Denies heavy alcohol or illicit drugs. All Other Systems: Reviewed and Negative Allergies Coded Allergies: Clonidine (Verified Allergy, Unknown, 10/22/09) Medications Current Inpatient Medications Medications (Trade) Dose Ordered Sig/Brian Route Start Time Stop Time Status Last Admin Dose Admin Acetaminophen (Tylenol Tab) 650 mg Q4H PRN PO 01/14/18 16:45 02/13/18 16:44 Al Hydrox/Mg Hydrox/Simethicone (Maalox Max Susp) 15 ml Q4H PRN PO 01/14/18 16:45 02/13/18 16:44 Magnesium Hydroxide (Milk Of Magnesia Susp) 30 ml Q12H PRN PO 01/14/18 16:45 02/13/18 16:44 Ondansetron HCl (Zofran Inj) 4 mg Q6H PRN IV 01/14/18 16:45 02/13/18 16:44 Polyethylene (Miralax Powder Packet) 17 gm DAILY PRN PO 01/14/18 16:45 02/13/18 16:44 Glucose (Glucose 40% Gel) 15-30 GRAMS 15 GRAMS... UD PRN PO 01/14/18 16:45 02/13/18 16:44 Glucose (Glucose Chew Tab) 4-8 Tablets 4 Tabl... UD PRN PO 01/14/18 16:45 02/13/18 16:44 Dextrose (Dextrose 50% 50ML Syringe) 25-50ML OF 50% DW IV FOR... UD PRN IV 01/14/18 16:45 02/13/18 16:44 Glucagon (Glucagon Inj) 1 mg UD PRN SQ 01/14/18 16:45 02/13/18 16:44 Aspirin (Ecotrin Tab) 81 mg DAILY PO 01/15/18 09:00 02/14/18 08:59 01/15/18 07:42 81 MG Cyanocobalamin (Vitamin B-12 Tab) 100 mcg DAILY PO 01/15/18 09:00 02/14/18 08:59 01/15/18 07:43 100 MCG Rosuvastatin Calcium (Crestor Tab) 20 mg DAILY PO 01/15/18 09:00 02/14/18 08:59 01/15/18 07:44 20 MG Hydralazine HCl (HydrALAZINE INJ) 10 mg Q6H PRN IV. 01/14/18 16:45 02/13/18 16:44 Insulin Aspart (novoLOG ASPART) SLIDING SCALE G... ACHS SC 01/14/18 21:00 02/13/18 20:59 01/15/18 16:51 3 UNITS Miscellaneous (Iv Fluids Completed) 1 ea PRN PRN N/A 01/14/18 18:45 01/14/19 18:44 Metoprolol Tartrate (Lopressor Tab) 12.5 mg BID PO 01/14/18 21:00 02/13/18 20:59 01/15/18 07:43 12.5 MG Heparin Sodium/ Dextrose 500 ml @ 31 mls/hr Q16H8M IV 01/14/18 19:15 02/13/18 19:14 01/15/18 10:56 31 MLS/HR Sodium Chloride 1,000 ml @ 100 mls/hr Q10H IV 01/15/18 14:06 02/14/18 14:05 01/15/18 16:48 100 MLS/HR Physical Exam Vital Signs Past 12 Hours Date Time Temp Pulse Resp B/P (MAP) Pulse Ox O2 Delivery O2 Flow Rate FiO2 01/15/18 15:30 Room Air 01/15/18 15:26 36.3 80 18 121/57 (78) 97 Room Air 01/15/18 14:40 78 16 128/66 (86) 97 Room Air 01/15/18 14:25 79 16 134/67 (89) 97 Room Air 01/15/18 14:10 77 16 130/66 (87) 96 Room Air 01/15/18 13:55 79 16 156/77 (103) 97 Room Air 01/15/18 13:41 79 16 122/86 (98) 99 Room Air 01/15/18 13:26 36.5 65 16 144/82 (102) 95 Room Air 01/15/18 13:10 62 16 118/60 (79) 96 Room Air 01/15/18 12:55 65 16 122/65 (84) 96 Room Air 01/15/18 08:00 Room Air 01/15/18 06:26 86 17 113/73 (86) 96 Room Air General: Comfortable, no acute distress, obese, looks younger than stated age Eyes: Sclerae anicteric, extraocular movements intact HENT: Oropharynx clear mucous membranes moist Neck: Normal carotid upstrokes, no bruits. No JVD. Lungs: Clear to auscultation bilaterally, no rhonchi or wheezes Cardiac: Regular rate and rhythm, no murmurs, rubs or gallops. Vascular: 2+ radial, DP and PT pulses. No varicosities. Abdomen: Soft, nontender, nondistended, positive bowel sounds. Extremities: Well perfused, no peripheral edema Skin: No rashes or lesions. Neuro: Nonfocal Psych: Alert orient x3, normal affect and mood Data Laboratory Results: Last 24 Hours Test 01/14/18 19:02 01/14/18 20:28 01/14/18 22:43 01/15/18 01:21 White Blood Count 10.78 K/uL Red Blood Count 5.07 M/uL Hemoglobin 15.0 g/dL Hematocrit 43.0 % Mean Corpuscular Volume 84.8 fL Mean Corpuscular Hemoglobin 29.6 pg Mean Corpuscular Hemoglobin Concent 34.9 g/dl Platelet Count 211 K/uL Mean Platelet Volume 9.6 fL Neutrophils (%) (Auto) 72.0 % Lymphocytes (%) (Auto) 17.9 % Monocytes (%) (Auto) 7.1 % Eosinophils (%) (Auto) 2.5 % Basophils (%) (Auto) 0.3 % Neutrophils # (Auto) 7.76 K/uL Lymphocytes # (Auto) 1.93 K/uL Monocytes # (Auto) 0.77 K/uL Eosinophils # (Auto) 0.27 K/uL Basophils # (Auto) 0.03 K/uL RDW Standard Deviation 41.1 fL RDW Coefficient of Variation 13.4 % Immature Granulocyte % (Auto) 0.2 % Immature Granulocyte # (Auto) 0.02 K/uL Prothrombin Time 10.6 SECONDS Prothromb Time International Ratio 1.0 Activated Partial Thromboplast Time 27.8 SECONDS 47.2 SECONDS Partial Thromboplastin Ratio 1.1 1.8 Bedside Glucose 127 mg/dl Total Creatine Kinase 123 U/L Creatine Kinase MB 2.8 ng/ml Creatine Kinase MB Ratio 2.3 Troponin I 0.036 ng/ml Test 01/15/18 06:51 01/15/18 07:29 01/15/18 13:38 White Blood Count 8.16 K/uL Red Blood Count 5.03 M/uL Hemoglobin 14.9 g/dL Hematocrit 42.2 % Mean Corpuscular Volume 83.9 fL Mean Corpuscular Hemoglobin 29.6 pg Mean Corpuscular Hemoglobin Concent 35.3 g/dl RDW Standard Deviation 40.2 fL RDW Coefficient of Variation 13.3 % Platelet Count 209 K/uL Mean Platelet Volume 10.1 fL Sodium Level 137 mmol/L Potassium Level 3.8 mmol/L Chloride Level 105 mmol/L Carbon Dioxide Level 24 mmol/L Anion Gap 8.0 mmol/L Blood Urea Nitrogen 20 mg/dl Creatinine 1.28 mg/dl Est Creatinine Clear Calc Drug Dose 52.1 ml/min Estimated GFR () 59.2 Estimated GFR (Non- 51.1 BUN/Creatinine Ratio 15.5 Random Glucose 150 mg/dl Calcium Level 8.9 mg/dl Phosphorus Level 2.8 mg/dl Magnesium Level 1.7 mg/dl 2.0 mg/dl Total Creatine Kinase 123 U/L Creatine Kinase MB 2.7 ng/ml Creatine Kinase MB Ratio 2.2 Troponin I 0.033 ng/ml Bedside Glucose 159 mg/dl EKG (01/15 8:58)Sinus rhythm, ventricular rate 76, first-degree AV block, left bundle-branch block, sinus arrhythmia with occasional PVC Assessment & Plan 1. Severe multivessel coronary artery disease 2. Ischemic cardiomyopathy, EF 20-25% 3. Atrial fibrillation with RVR 4. Type 2 diabetes on oral therapy 5. Hypertension 6. Dyslipidemia 7. Chronic renal insufficiency At present patient remains asymptomatic, back in sinus rhythm, with no signs or symptoms of heart failure on exam. He has newly recognized stable ischemic heart disease with severe LV dysfunction. Suspect some degree of LV dysfunction also related to previously unrecognized tachyarrhythmia and hopeful that with revascularization and rate control LV function will improve long-term. Discussed with patient and his options for treatment going forward including medical management, multivessel PCI and bypass surgery. With patient' s age, reasonably low risk coronary disease for PCI (low risk syntax score of 14 ) feel that either PCI or surgery are reasonable options despite LV dysfunction and diabetes. After discussion patient and his wish to proceed with multivessel stenting. Assuming renal function stable will plan on PCI of LAD and RCA tomorrow. Possible attempt at PCI of distal circumflex as an outpatient. While awaiting PCI tomorrow-- --keep NPO past midnight --continue on heparin infusion --load with clopidogrel 300 mg tonight, start 75 mg daily tomorrow --continue current aspirin --increase metoprolol to 25 mg b.i.d. --continue current statin --plan to resume lisinopril post PCI --likely home on triple therapy with aspirin/Plavix and NOAC.
[2018-01-15] MEDS ORDERED: CLOPIDOGREL BISULFATE 300 MG TAB PO STA (18:15)
[2018-01-16] VITALS (19 sets, daily range): BP systolic 103–147; BP diastolic 48–92; PULSE 56–92; TEMP 36.4–36.7; O2SAT 91–97
[2018-01-16] MEDS: SODIUM CHLORIDE 0.9% 1000ML 1,000 ML IV SCH ×3 (02:52→17:38)
[2018-01-16 05:11] LABS: HEMATOCRIT 42.2 % (42-52); HEMOGLOBIN 14.7 g/dL (14.0-18.0); MEAN CELL VOLUME 84.7 fL (80-100); MEAN CORPUSCULAR HEMOGLOBIN 29.5 pg (25-34); MEAN CORPUSCULAR HGB CONC 34.8 g/dl (32-36); MEAN PLATELET VOLUME 9.5 fL (7.4-10.4); PLATELET COUNT 198 K/uL (130-400); RED CELL DISTRIBUTION WIDTH CV 13.3 % (11.5-14.5); RED CELL DISTRIBUTION WIDTH SD 40.8 fL (36.4-46.3); WHITE BLOOD COUNT 10.56 K/uL (4.8-10.8)
[2018-01-16] MEDS: HEPARIN 25,000 UNIT/500ML D5W 500 ML IV SCH (05:22)
[2018-01-16 05:30] LABS: CALCIUM 8.6 mg/dl (8.5-10.1); CREATININE 1.35 mg/dl (0.60-1.40); PHOSPHORUS 2.8 mg/dl (2.5-4.9); POTASSIUM 3.5 mmol/L (3.5-5.1)
[2018-01-16 05:35] LABS: PTT PATIENT 67.9 SECONDS (21.0-31.0)
[2018-01-16] MEDS: INSULIN ASPART 100 UNITS/ML 3 ML PEN SC SCH ×4 (06:33→20:50)
[2018-01-16] MEDS: ROSUVASTATIN CALCIUM 20 MG TAB PO SCH (08:37)
[2018-01-16] MEDS: ASPIRIN 81 MG ECTAB PO SCH (08:37)
[2018-01-16] MEDS: CYANOCOBALAMIN 100 MCG TAB (VIT B-12) PO SCH (08:37)
[2018-01-16] MEDS: METOPROLOL TARTRATE 25 MG TAB PO SCH ×2 (08:37→20:52)
[2018-01-16] MEDS: CLOPIDOGREL BISULFATE 75 MG TAB PO SCH (08:37)
--- NOTE | 2018-01-16 10:38 | Hospitalist Progress Note ---
Hospitalist Progress Note Date of Service January 16, 2018. (Nayeli Wilson ., MARUISIO) Subjective Pt evaluation today including: conversation w/ patient, physical exam, chart review, lab review, review of studies, review of inpatient medication list Voiding: no voiding problems Mr. Smith has no symptoms or complaints today. He will go to freezer laboratory technician this morning for stent placement. No events overnight on monitor, A.fib/SR rate controlled in the 70s ROS Constitutional: no chills, aches, sweats or fever Respiratory: no sob,cough, sputum, or wheezing Cardiac: no chest pain, palpitations, edema, orthopnea or lightheadedness GI: no abdominal pain, nausea, vomiting, diarrhea or constipation : no dysuria or hesitancy Extremities: no joint pain or weakness Skin: no rash All other systems reviewed and negative (Nayeli Wilson, MAURISIO) Medications Medications Administered Medications (Trade) Dose Ordered Sig/Brian Route Start Time Stop Time Status Last Admin Dose Admin Diltiazem HCl (Cardizem Inj) 10 mg NOW STAT IV 01/14/18 14:58 01/14/18 14:59 DC 01/14/18 15:09 10 MG Sodium Chloride 1,000 ml @ 999 mls/hr Q1H1M STAT IV 01/14/18 15:27 01/14/18 16:27 DC 01/14/18 15:27 999 MLS/HR Aspirin (Ecotrin Tab) 81 mg DAILY PO 01/15/18 09:00 02/14/18 08:59 01/16/18 08:37 81 MG Cyanocobalamin (Vitamin B-12 Tab) 100 mcg DAILY PO 01/15/18 09:00 02/14/18 08:59 01/16/18 08:37 100 MCG Rosuvastatin Calcium (Crestor Tab) 20 mg DAILY PO 01/15/18 09:00 02/14/18 08:59 01/16/18 08:37 20 MG Potassium Chloride (Klor-Con Tab) 40 meq 1815 ONCE PO 01/14/18 18:15 01/14/18 18:16 DC 01/14/18 18:43 40 MEQ Insulin Aspart (novoLOG ASPART) SLIDING SCALE G... ACHS SC 01/14/18 21:00 02/13/18 20:59 01/15/18 16:51 3 UNITS Metoprolol Tartrate (Lopressor Tab) 12.5 mg BID PO 01/14/18 21:00 01/15/18 18:17 DC 01/15/18 07:43 12.5 MG Heparin Sodium/ Dextrose 500 ml @ 31 mls/hr Q16H8M IV 01/14/18 19:15 02/13/18 19:14 01/16/18 05:22 31 MLS/HR Magnesium Sulfate 100 ml @ 100 mls/hr NOW STAT IV 01/15/18 08:08 01/15/18 09:07 DC 01/15/18 10:56 100 MLS/HR Heparin Sodium (Porcine) (Heparin Iv Bolus) 10,000 unit STK-MED ONCE .ROUTE 01/15/18 11:39 01/15/18 11:40 DC 01/15/18 11:39 5,000 UNIT Midazolam HCl (Versed Inj) 2 mg STK-MED ONCE .ROUTE 01/15/18 11:40 01/15/18 11:41 DC 01/15/18 11:40 1 MG Fentanyl Citrate (Fentanyl Inj) 100 mcg STK-MED ONCE .ROUTE 01/15/18 11:40 01/15/18 11:41 DC 01/15/18 11:40 50 MCG Sodium Chloride 1,000 ml @ 100 mls/hr Q10H IV 01/15/18 14:06 02/14/18 14:05 01/16/18 02:52 100 MLS/HR Metoprolol Tartrate (Lopressor Tab) 25 mg BID PO 01/15/18 21:00 02/13/18 20:59 01/16/18 08:37 25 MG Clopidogrel Bisulfate (plAVix TAB) 300 mg NOW STAT PO 01/15/18 18:15 01/15/18 18:25 DC 01/15/18 20:24 300 MG Clopidogrel Bisulfate (plAVix TAB) 75 mg QAM PO 01/16/18 09:00 02/15/18 08:59 01/16/18 08:37 75 MG (Nayeli Wilson, MAURISIO) Objective Vital Signs Date Time Temp Pulse Resp B/P (MAP) Pulse Ox O2 Delivery O2 Flow Rate FiO2 01/16/18 08:00 36.7 84 18 115/67 (83) 95 Room Air 01/16/18 08:00 Room Air 01/16/18 04:15 Room Air 01/16/18 03:35 36.6 73 23 123/73 (90) 96 Room Air 01/16/18 00:00 Room Air 01/15/18 23:23 36.3 76 17 112/63 (79) 97 Room Air 01/15/18 20:00 Room Air 01/15/18 19:51 36.8 89 20 114/53 (73) 94 Room Air 01/15/18 15:30 Room Air 01/15/18 15:26 36.3 80 18 121/57 (78) 97 Room Air 01/15/18 14:40 78 16 128/66 (86) 97 Room Air 01/15/18 14:25 79 16 134/67 (89) 97 Room Air 01/15/18 14:10 77 16 130/66 (87) 96 Room Air 01/15/18 13:55 79 16 156/77 (103) 97 Room Air 01/15/18 13:41 79 16 122/86 (98) 99 Room Air 01/15/18 13:26 36.5 65 16 144/82 (102) 95 Room Air 01/15/18 13:10 62 16 118/60 (79) 96 Room Air 01/15/18 12:55 65 16 122/65 (84) 96 Room Air (Nayeli Wilson CRNP) Physical Exam Notes: General: no distress Eyes: normal inspection, PERLL Respiratory: chest non tender, clear to auscultation, normal breath sounds, no respiratory distress, no accessory muscle use Cardiac: irregular rate and rhythm, no rub or gallop, no murmur, no edema, no jvd GI/: active bowel sounds, no abd pain or tenderness, soft, non distended, strong urine odor in room Extremities: normal range of motion, normal strength, non tender Neuro/Psych: alert and oriented x 3, normal mood and affect Skin: normal color, dry (Nayeli Wilson CRNP) Laboratory Results Last 24 Hours Test 01/15/18 13:38 01/15/18 16:39 01/15/18 19:16 01/15/18 20:48 Magnesium Level 2.0 mg/dl Bedside Glucose 121 mg/dl 122 mg/dl Activated Partial Thromboplast Time 64.0 SECONDS Partial Thromboplastin Ratio 2.5 Test 01/16/18 03:50 01/16/18 05:02 01/16/18 06:21 01/16/18 07:29 Bedside Glucose 144 mg/dl 150 mg/dl 168 mg/dl White Blood Count 10.56 K/uL Red Blood Count 4.98 M/uL Hemoglobin 14.7 g/dL Hematocrit 42.2 % Mean Corpuscular Volume 84.7 fL Mean Corpuscular Hemoglobin 29.5 pg Mean Corpuscular Hemoglobin Concent 34.8 g/dl RDW Standard Deviation 40.8 fL RDW Coefficient of Variation 13.3 % Platelet Count 198 K/uL Mean Platelet Volume 9.5 fL Activated Partial Thromboplast Time 67.9 SECONDS Partial Thromboplastin Ratio 2.6 Sodium Level 137 mmol/L Potassium Level 3.5 mmol/L Chloride Level 105 mmol/L Carbon Dioxide Level 26 mmol/L Anion Gap 6.0 mmol/L Blood Urea Nitrogen 18 mg/dl Creatinine 1.35 mg/dl Est Creatinine Clear Calc Drug Dose 49.4 ml/min Estimated GFR () 55.5 Estimated GFR (Non- 47.9 BUN/Creatinine Ratio 13.4 Random Glucose 149 mg/dl Calcium Level 8.6 mg/dl Phosphorus Level 2.8 mg/dl Magnesium Level 1.9 mg/dl (Nayeli Wilson ., MAURISIO) Assessment and Plan Mr. Smith is an 82 year old man here for A.flutter with RVR A.flutter RVR, triple vessel CAD, - continue telemetry monitoring - consulted cardiology - plan is for cath with stents this afternoon, diagnostic cath yesterday showed triple vessel disease. - Echo showed: Left ventricular systolic function is severely reduced. * Ejection Fraction = 20-25%. 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 Other stanford hypokinetic. * There is mild mitral regurgitation. - NSR since converting in the ED last evening except for 9 beat run of Vtach two nights ago - corrected electrolytes, no further vtach overnight or today - continue Heparin gtt until after cath, then convert to Eliquis - continue ASA, BB, will restart lisinopril/hctz after cath Hypomagnesemia -resolved EITAN on CKD stage III - resolved -Baseline creatinine 1.2-1.3 -Creatinine 1.49 on admission, now wnl -Hold lisinopril/HCTZ until after cath HTN, HLD--stable -Continue ASA, Norvasc 2.5 mg PO BID, Crestor 20 mg PO hs -Lisinopril/HCTZ held due to EITAN - restart after cath -Cover with hydralazine 10 mg IV q6h prn SBP >180 DM II--HgbA1c 7.3 on 12/28/17 -Hold glipizide and metformin. -Insulin sliding scale -Check BSGs q ac and qhs Prostate cancer--noted. Pt denies any h/o prostatectomy, chemo or radiation. Being monitored by urology DVT prophylaxis -Heparin drip -THERESA thompson and SCDs Code Status -Level I, FULL RESUSCITATION STATUS (Nayeli Wilson ., MAURISIO) ENGINEERING OFFICER Physician Supervision Note: I interviewed and examined the patient. Discussed with Nayeli Wislon NP and agree with findings and plan as documented in the note. Any exceptions or clarifications are listed here: None Patient is scheduled for heart catheterization today for intervention on multivessel coronary disease he has had no further chest pain evaluation for urine infections unwarranted his vital signs remained stable Cardiac exam is regular lungs clear previous access site for his diagnostic heart cath is clean dry and intact he has good sensation in distal perfusion on that hand Further evaluation or intervention for coronary artery disease which was suspected due to decrease in global cardiac function with a pre-existing history of cardiac disease and new onset atrial flutter which converted to sinus rhythm patient however will remain anticoagulated due to concerns for tachyarrhythmia Documented By: Umesh Vasquez (Umesh Vasquez M.D.)
[2018-01-16] MEDS ORDERED: HEPARIN SOD (PORCINE) 1000 UNIT/ML 10 ML VIAL ONE ×2 (13:18→14:30)
[2018-01-16] MEDS ORDERED: MIDAZOLAM HCL 1 MG/ML 2ML VIAL ONE (13:18)
[2018-01-16] MEDS ORDERED: NiCARDipine HCL INJ 2.5 MG/ML 10 ML AMP ONE (13:18)
[2018-01-16] MEDS ORDERED: FENTANYL CITRATE INJ 50 MCG/1 ML 2 ML VIAL ONE (13:18)
[2018-01-16] MEDS ORDERED: NITROGLYCERIN/D5W 100MCG/ML 20ML SYR ONE (13:19)
--- NOTE | 2018-01-16 13:25 | Cardiology Follow-Up ---
Subjective Subjective Date of Service: January 16, 2018. Pt evaluation today including: conversation w/ patient, physical exam, chart review, lab review, review of studies, review of inpatient medication list Additional Details: Feeling well. No chest pain overnight. telemetry reviewed -- no events. Problem List Medical Problems: (1) Atrial fibrillation with rapid ventricular response Status: Acute (2) Left bundle branch block Status: Acute Review of Systems Constitutional: No fever ENT: No hearing loss Respiratory: No cough, No sputum Cardiac: No chest pain Abdomen: No pain, No nausea Heme: No abnormal bleeding/bruising Skin: No rash Objective Vital Signs Last Vital Signs Documentation Date Time Temp Pulse Resp B/P (MAP) Pulse Ox O2 Delivery O2 Flow Rate FiO2 01/16/18 12:00 Room Air 01/16/18 11:39 36.4 92 18 144/72 (96) 93 Physical Exam: General Appearance: no apparent distress ENT: hearing grossly normal Neck: no JVD Respiratory/Chest: lungs clear, normal breath sounds Cardiovascular: regular rate, rhythm, no edema Abdomen: non tender, soft Extremities: no pedal edema, no calf tenderness Neurologic/Psychiatric: + pertinent finding (right radial artery -- no hematoma , ecchymosis -- intact distal pulse) Skin: warm/dry, no rash Assessment and Plan 1. Severe multivessel coronary artery disease 2. Ischemic cardiomyopathy, EF 20-25% 3. Atrial fibrillation with RVR 4. Type 2 diabetes on oral therapy 5. Hypertension 6. Dyslipidemia 7. Chronic renal insufficiency Plan to proceed with PCI of RCA and mid LAD today. No change to current cardiac meds. Further recommendations pending completion of cardiac cath. Medications: Current Inpatient Medications Medications (Trade) Dose Ordered Sig/Brian Route Start Time Stop Time Status Last Admin Dose Admin Acetaminophen (Tylenol Tab) 650 mg Q4H PRN PO 01/14/18 16:45 02/13/18 16:44 Al Hydrox/Mg Hydrox/Simethicone (Maalox Max Susp) 15 ml Q4H PRN PO 01/14/18 16:45 02/13/18 16:44 Magnesium Hydroxide (Milk Of Magnesia Susp) 30 ml Q12H PRN PO 01/14/18 16:45 02/13/18 16:44 Ondansetron HCl (Zofran Inj) 4 mg Q6H PRN IV 01/14/18 16:45 02/13/18 16:44 Polyethylene (Miralax Powder Packet) 17 gm DAILY PRN PO 01/14/18 16:45 02/13/18 16:44 Glucose (Glucose 40% Gel) 15-30 GRAMS 15 GRAMS... UD PRN PO 01/14/18 16:45 02/13/18 16:44 Glucose (Glucose Chew Tab) 4-8 Tablets 4 Tabl... UD PRN PO 01/14/18 16:45 02/13/18 16:44 Dextrose (Dextrose 50% 50ML Syringe) 25-50ML OF 50% DW IV FOR... UD PRN IV 01/14/18 16:45 02/13/18 16:44 Glucagon (Glucagon Inj) 1 mg UD PRN SQ 01/14/18 16:45 02/13/18 16:44 Aspirin (Ecotrin Tab) 81 mg DAILY PO 01/15/18 09:00 02/14/18 08:59 01/16/18 08:37 81 MG Cyanocobalamin (Vitamin B-12 Tab) 100 mcg DAILY PO 01/15/18 09:00 02/14/18 08:59 01/16/18 08:37 100 MCG Rosuvastatin Calcium (Crestor Tab) 20 mg DAILY PO 01/15/18 09:00 02/14/18 08:59 01/16/18 08:37 20 MG Hydralazine HCl (HydrALAZINE INJ) 10 mg Q6H PRN IV. 01/14/18 16:45 02/13/18 16:44 Insulin Aspart (novoLOG ASPART) SLIDING SCALE G... ACHS SC 01/14/18 21:00 02/13/18 20:59 01/15/18 16:51 3 UNITS Miscellaneous (Iv Fluids Completed) 1 ea PRN PRN N/A 01/14/18 18:45 01/14/19 18:44 Heparin Sodium/ Dextrose 500 ml @ 31 mls/hr Q16H8M IV 01/14/18 19:15 02/13/18 19:14 01/16/18 05:22 31 MLS/HR Sodium Chloride 1,000 ml @ 100 mls/hr Q10H IV 01/15/18 14:06 02/14/18 14:05 01/16/18 10:50 100 MLS/HR Metoprolol Tartrate (Lopressor Tab) 25 mg BID PO 01/15/18 21:00 02/13/18 20:59 01/16/18 08:37 25 MG Clopidogrel Bisulfate (plAVix TAB) 75 mg QAM PO 01/16/18 09:00 02/15/18 08:59 01/16/18 08:37 75 MG Lab Results: 01/16/18 05:02 01/16/18 05:02 Test 01/16/18 05:02 01/16/18 11:41 Red Blood Count 4.98 M/uL (4.7-6.1) Mean Corpuscular Volume 84.7 fL (80-100) Mean Corpuscular Hemoglobin 29.5 pg (25-34) Mean Corpuscular Hemoglobin Concent 34.8 g/dl (32-36) RDW Standard Deviation 40.8 fL (36.4-46.3) RDW Coefficient of Variation 13.3 % (11.5-14.5) Mean Platelet Volume 9.5 fL (7.4-10.4) Activated Partial Thromboplast Time 67.9 SECONDS (21.0-31.0) Partial Thromboplastin Ratio 2.6 Anion Gap 6.0 mmol/L (3-11) Est Creatinine Clear Calc Drug Dose 49.4 ml/min Estimated GFR () 55.5 Estimated GFR (Non- 47.9 BUN/Creatinine Ratio 13.4 (10-20) Calcium Level 8.6 mg/dl (8.5-10.1) Phosphorus Level 2.8 mg/dl (2.5-4.9) Magnesium Level 1.9 mg/dl (1.8-2.4) Bedside Glucose 151 mg/dl (70-99)
--- NOTE | 2018-01-16 13:26 | Pre Sedation Assessment ---
Pre Sedation Assessment General Date of Sedation: January 16, 2018. Vital Signs Past 12 Hours Date Time Temp Pulse Resp B/P (MAP) Pulse Ox O2 Delivery O2 Flow Rate FiO2 01/16/18 12:00 Room Air 01/16/18 11:39 36.4 92 18 144/72 (96) 93 Room Air 01/16/18 08:00 36.7 84 18 115/67 (83) 95 Room Air 01/16/18 08:00 Room Air 01/16/18 04:15 Room Air 01/16/18 03:35 36.6 73 23 123/73 (90) 96 Room Air Review Cardiovascular: regular rate, rhythm, no edema Lungs: chest non-tender, lungs clear Pre-Sedation Airway Assessment Smoking Status: Never Smoker Hx of Sleep Apnea: No Hx of difficult intubation: No Short Thick Neck: No Thyro-mental Distance: > 3 Finger Breadths Oral Cavity: WNL Mallampati Classification: Class II ASA Classification: Class III NPO Status Date of Last Intake of Fluids: January 16, 2018 Time of Last Intake of Fluids: 0830 Date of Last Intake of Solids: January 15, 2018 Time of Last Intake of Solids: 2200 Procedure Planning Contraindications for Sedation: None Current Medications Reviewed: Yes Notes The planned sedation has been discussed with the patient. Informed Consent was obtained. I have identified the patient, determined the appropriateness of sedation and have assessed the patient immediately prior to the procedure. All medicine(s) and interventions are by my order.
[2018-01-16] MEDS ORDERED: SODIUM CHLORIDE 0.9% 500ML 500 ML IV SCH (15:23)
--- NOTE | 2018-01-16 15:23 | Cardiac Catheterization ---
Procedure Note Procedure Date January 16, 2018. 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 Briefly, patient found to have severe multi-vessel disease including a 90% mid RCA, and 70% early-distal LAD and occluded distal circumflex. After discussion of options yesterday decision to proceed with PCI of RCA and LAD today. -- PCI -- Antithrombotic therapy: Heparin, Clopidogrel Procedure: RCA cannulated with AR1 guide BMW wire passed across mid RCA lesion into distal vessel Mid RCA lesion predilated with 2.5 compliant balloon Dilated lesion stented with 3.5 x 23 Xience JANETH Stent post-dilated with 4.0 noncompliant balloon IC vasodilators administered for spasm Post procedure YO 3 flow, stent well expanded with minimal residual stenosis and no apparent cardiac complications. PCI of mid LAD LM cannulated with EBU 3.5 guide BMW wire passed across LAD lesion and placed into apical vessel. Mid LAD predilated with 2.5 compliant balloon. Dilated lesion stented with 2.75 x 18 Xience JANETH Stent post-dilated with 2.75 NC balloon. IC vasodilators administered for spasm Post procedure YO 3 flow, stent well expanded with minimal residual stenosis and no apparent cardiac complications. Arterial Closure: TR Band Summary: 1. Successful PCI of mid RCA with single drug-eluting stent (3.5 x 23 Xience JANETH ; post-dilated with 4.0 NC). 2. Successful PCI of late-mid LAD with single drug-eluting stent (2.75 x 18 Xience JANETH). Recommendations: To PCU for continued monitoring Loaded with Clopidogrel yesterday Stop heparin infusion now, start Apixaban this evening. Continue triple therapy with Aspirin/clopidogrel/apixaban for 1 month --> then transition to apixaban/clopidogrel. Titrate beta-art and restart lisinopril Continue statin, and ASCVD risk factor modification Consult cardiac Rehab Will consider PCI to occluded distal circumflex as an outpatient. Hemodynamics Rest Ao: 96/46/67 Final Ao: 119/56/85 LV: -- Recommendations PCI without planned CABG Specimens None Radiation Exposure (mGy) 3924 Contrast (mls) 150 Fluids (cc crystalloids) 250 Drains None Anesthesia Moderate Procedural Complication(s) None Disposition PCU ACC Data Cardiac Status Clinical evaluation leading to the procedure CAD Presntation: Unstable angina Anginal Classification: CCS II Heart Failure: No, NYHA Class: CCS I Cardiogenic Shock w/in 24Hrs: No Cardiac Arrest w/in 24Hrs: No Imaging studies past 6 months: Yes Stress studies past 6 months: No Closure Device Percutaneous Entry Location: Radial Closure Device: Radial Band Recommendations: PCI without planned CABG PCI Indication: Unstable Angina Lesion Segment Name: mid RCA Culprit Artery: Yes Stenosis Prior to Rx (%): 90 Chronic Total Occlusion: No IVUS: No FFR: No Pre-Procedure YO Flow: 3 Previously Treated Lesion: No Lesion Complexity: Non-High/Non-C Lesion Length (mm): 20 Thrombus Present: No Bifurcation Lesion: No Guidewire Across Lesion: Yes Guidewire: Stenosis Post-Procedure (%): 0 Post-Procedure YO Flow: 3 Device(s) Deployed: Yes Lesion #2 Segment Name: mid LAD Culprit Artery: No Stenosis Prior to Rx (%): 70 Chronic Total Occlusion: No IVUS: No FFR: No Pre-Procedure YO Flow: 3 Previously Treated Lesion: Yes Lesion Complexity: Non-High/Non-C Lesion Length (mm): 12 Thrombus Present: No Bifurcation Lesion: No Guidewire Across Lesion: Yes Guidewire: Stenosis Post-Procedure (%): 0 Post-Procedure YO Flow: 3 Device(s) Deployed: Yes Intraprocedure Events Significant Dissection: No Perforation: No
[2018-01-16] MEDS: APIXABAN 2.5 MG TAB PO SCH (20:52)
[2018-01-16] MEDS ORDERED: NURSING VERBAL MED ORDER ONE (21:45)
[2018-01-17 04:00] VITALS: BP 133/65; PULSE 85; TEMP 37; O2SAT 94
[2018-01-17 04:56] LABS: HEMOGLOBIN 14.3 g/dL (14.0-18.0); MEAN CELL VOLUME 83.8 fL (80-100); MEAN CORPUSCULAR HEMOGLOBIN 29.2 pg (25-34); MEAN CORPUSCULAR HGB CONC 34.9 g/dl (32-36); MEAN PLATELET VOLUME 9.5 fL (7.4-10.4); PLATELET COUNT 184 K/uL (130-400); RED CELL DISTRIBUTION WIDTH CV 13.3 % (11.5-14.5)
[2018-01-17 05:17] LABS: CALCIUM 8.9 mg/dl (8.5-10.1); CREATININE 1.18 mg/dl (0.60-1.40); PHOSPHORUS 2.4 mg/dl (2.5-4.9); POTASSIUM 3.7 mmol/L (3.5-5.1)
[2018-01-17 07:03] VITALS: BP 112/56; PULSE 77; TEMP 36.7; O2SAT 94
[2018-01-17] MEDS: METOPROLOL TARTRATE 25 MG TAB PO SCH (07:41)
[2018-01-17] MEDS: ROSUVASTATIN CALCIUM 20 MG TAB PO SCH (07:41)
[2018-01-17] MEDS: CYANOCOBALAMIN 100 MCG TAB (VIT B-12) PO SCH (07:41)
[2018-01-17] MEDS: ASPIRIN 81 MG ECTAB PO SCH (07:41)
[2018-01-17] MEDS: APIXABAN 2.5 MG TAB PO SCH (07:41)
[2018-01-17] MEDS: CLOPIDOGREL BISULFATE 75 MG TAB PO SCH (07:41)
[2018-01-17] MEDS: INSULIN ASPART 100 UNITS/ML 3 ML PEN SC SCH (07:45)
[2018-01-17] MEDS ORDERED: LPR25 PO ×2 (08:56→11:22)
[2018-01-17] MEDS ORDERED: ELQ25 PO ×2 (08:56→11:22)
--- NOTE | 2018-01-17 08:58 | Discharge Instructions ---
Discharge Instructions Date of Service January 17, 2018. Admission Reason for Admission: Atrial Flutter With Rapd Ventricular Response Discharge Discharge Diagnosis / Problem: atrial flutter, coronary artery disease, stent x2 Discharge Goals Goal(s): Diagnostic testing, Therapeutic intervention Activity Recommendations Activity Limitations: as noted below . Instructions / Follow-Up Instructions / Follow-Up Call your Primary Care doctor if any of the following symptoms or problems start or get worse: * Shortness of breath or difficulty breathing * Wake up at night short of breath * Chest pain * Cough * Swelling of your hands, feet, or legs * More fatigued or tired with your normal activity * Palpitations - sudden fast heart beats WEIGHT * Weigh yourself every morning after using the bathroom. * Use the same scale. * Wear the same amount of clothing. * Write your weight down on a chart. * Call your Primary Care doctor if you gain more than 2-3 pounds in 1-2 days. MEDICATIONS * Use this discharge instruction sheet for medication instructions. * Take your medications at the time your doctor ordered. * Do not skip a dose of your medicines. * If you miss a dose of medicine, take it as soon as possible, but DO NOT DOUBLE A DOSE. * Read your medicine information when you get home. * Know all of the side effects of your medicine. If in doubt, ask your pharmacist * Call your Primary Care doctor's office if you have any side effects. * Be sure all of your doctors know what medicine and herbs you take (including cold, flu, and herbal medicine). Take the following with you to your follow-up doctor appointments: * Weight Chart * Medication List * List of questions Do not drink excessive alcohol, beer or wine. Current Hospital Diet Patient's current hospital diet: AHA Diet (Heart Healthy), Diabetes Type 2 Diet Discharge Diet Recommended Diet: Low Sodium Diet (2gm Na), Diabetes Type 2 Diet Pending Studies Studies pending at discharge: no Laboratory Results Hemoglobin A1c Test 12/28/17 08:11 Range/Units Estimated Average Glucose 163 mg/dl Hemoglobin A1c 7.3 H 4.5-5.6 % Lipid Panel Test 12/28/17 08:11 Range/Units Triglycerides Level 89 0-150 mg/dl Cholesterol Level 132 0-200 mg/dl HDL Cholesterol 45 mg/dl Cholesterol/HDL Ratio 2.9 LDL Cholesterol, Calculated 69 mg/dl Medical Emergencies . Who to Call and When: Call 911 or go to the Emergency Room if: * If at any time you feel your situation is an emergency * You have tightness or pain in your chest that does not go away with rest or Nitroglycerin * You are very short of breath even with rest . Non-Emergent Contact Non-Emergency issues call your: Primary Care Provider Call Non-Emergent contact if: temperature is above 101, your pain is unusual for you . . "Provider Documentation" section prepared by Umesh Vasquez. .
--- NOTE | 2018-01-17 09:00 | Discharge Instructions ---
Discharge Instructions Procedure Procedure Date: January 17, 2018. Reason for Visit: Atrial Flutter With Rapd Ventricular Response. Discharge Discharge Date: January 17, 2018. Discharge Diagnosis: Coronary stenting x2 RCA;LAD Problem List: Medical Problems: (1) Atrial fibrillation with rapid ventricular response Status: Acute (2) Left bundle branch block Status: Acute Last Recorded Wt (Kilograms): 108.800 Anesthesia Post Anesthesia Instructions: If you have had General Anesthesia or IV Sedation: * Do not drive today. * Resume driving when surgeon permits. * Do not make important decisions or sign legal documents today. * Call surgeon for: 1. Temperature elevations greater than 101 degrees F. 2. Uncontrollable pain. 3. Excessive bleeding. 4. Persistent nausea and vomiting. 5. Medication intolerance (nausea, vomiting or rash). * For nausea and vomiting use only clear liquids such as: tea, soda, bouillon until nausea subsides, then gradually increase diet as tolerated. * If you have any concerns or questions, call your surgeon's office. If physician is unavailable and it is an emergency, call 911 or go to the nearest emergency room. Instructions Activity Recommendations: lifting limitation Recommended Home Diet: resume previous diet, low sodium, low cholesterol, diabetes diet Allergies: Coded Allergies: Clonidine (Verified Allergy, Unknown, 10/22/09) Follow Up Joyce Gongora Recommendations: Call your doctor if: * Temperature above 101 degrees * Pain not relieved by pain medicine ordered * There is increased drainage or redness from any incision * You have any unanswered questions or concerns. Your Doctors Instructions noted above were prepared by provider Umesh Vasquez. Patient Signature Section: Patient Instructions Signature Page Simeon Smith Patient (or Guardian) Signature/Date: I have read and understand the instructions given to me by my caregivers. Caregiver/RN/Doctor Signature/Date: The above-named patient and/or guardian has received patient instructions on this date. + Original Patient Signature Page (only) stays with chart. Please make copy for patient.
--- NOTE | 2018-01-17 09:38 | Cardiology Follow-Up ---
Subjective Subjective Date of Service: January 17, 2018. Pt evaluation today including: conversation w/ patient, physical exam, chart review, lab review, review of studies, review of inpatient medication list Additional Details: Feeling well. No chest pain overnight. The significant shortness of breath. Telemetry reviewed--frequent PACs, no complex arrhythmias. Problem List Medical Problems: (1) Atrial fibrillation with rapid ventricular response Status: Acute (2) Left bundle branch block Status: Acute Review of Systems Constitutional: No fever ENT: No hearing loss Respiratory: No cough, No sputum Cardiac: No chest pain Abdomen: No pain, No nausea Heme: No abnormal bleeding/bruising Skin: No rash Objective Vital Signs Last Vital Signs Documentation Date Time Temp Pulse Resp B/P (MAP) Pulse Ox O2 Delivery O2 Flow Rate FiO2 01/17/18 07:03 36.7 77 17 112/56 (74) 94 Room Air Physical Exam: General Appearance: no apparent distress ENT: hearing grossly normal Neck: no JVD Respiratory/Chest: lungs clear, normal breath sounds Cardiovascular: regular rate, rhythm (Occasional premature beats), no edema Abdomen: non tender, soft Extremities: no pedal edema, no calf tenderness Neurologic/Psychiatric: + pertinent finding (right radial artery -- no hematoma , ecchymosis -- intact distal pulse) Skin: warm/dry, no rash Assessment and Plan 1. Severe multivessel coronary artery disease -- post PCI to LAD, RCA 2. Ischemic cardiomyopathy, EF 20-25% 3. Atrial fibrillation with RVR 4. Type 2 diabetes on oral therapy 5. Hypertension 6. Dyslipidemia 7. Chronic renal insufficiency Remains chest pain free. Electrically stable. Well perfused, minimal congestion on exam. From a cardiac standpoint OK for discharge today. Home on: -- Eliquis 5mg BID -- Clopidogrel 75mg daily -- Aspirin 81 mg daily -- Switch metoprolol to Toprol XL 50 mg Daily -- Start lower dose lisinopril 5mg daily -- Continue Crestor 20mg -- D/c amlodipine. Follow-up with me in next 1-2 weeks. Medications: Current Inpatient Medications Medications (Trade) Dose Ordered Sig/Brian Route Start Time Stop Time Status Last Admin Dose Admin Acetaminophen (Tylenol Tab) 650 mg Q4H PRN PO 01/14/18 16:45 02/13/18 16:44 Al Hydrox/Mg Hydrox/Simethicone (Maalox Max Susp) 15 ml Q4H PRN PO 01/14/18 16:45 02/13/18 16:44 Magnesium Hydroxide (Milk Of Magnesia Susp) 30 ml Q12H PRN PO 01/14/18 16:45 02/13/18 16:44 Disease mean time around up to a 7 Ondansetron HCl (Zofran Inj) 4 mg Q6H PRN IV 01/14/18 16:45 02/13/18 16:44 Polyethylene (Miralax Powder Packet) 17 gm DAILY PRN PO 01/14/18 16:45 02/13/18 16:44 Glucose (Glucose 40% Gel) 15-30 GRAMS 15 GRAMS... UD PRN PO 01/14/18 16:45 02/13/18 16:44 Glucose (Glucose Chew Tab) 4-8 Tablets 4 Tabl... UD PRN PO 01/14/18 16:45 02/13/18 16:44 Dextrose (Dextrose 50% 50ML Syringe) 25-50ML OF 50% DW IV FOR... UD PRN IV 01/14/18 16:45 02/13/18 16:44 Glucagon (Glucagon Inj) 1 mg UD PRN SQ 01/14/18 16:45 02/13/18 16:44 Aspirin (Ecotrin Tab) 81 mg DAILY PO 01/15/18 09:00 02/14/18 08:59 01/17/18 07:41 81 MG Cyanocobalamin (Vitamin B-12 Tab) 100 mcg DAILY PO 01/15/18 09:00 02/14/18 08:59 01/17/18 07:41 100 MCG Rosuvastatin Calcium (Crestor Tab) 20 mg DAILY PO 01/15/18 09:00 02/14/18 08:59 01/17/18 07:41 20 MG Hydralazine HCl (HydrALAZINE INJ) 10 mg Q6H PRN IV. 01/14/18 16:45 02/13/18 16:44 Insulin Aspart (novoLOG ASPART) SLIDING SCALE G... ACHS SC 01/14/18 21:00 02/13/18 20:59 01/17/18 07:45 4 UNITS Miscellaneous (Iv Fluids Completed) 1 ea PRN PRN N/A 01/14/18 18:45 01/14/19 18:44 Metoprolol Tartrate (Lopressor Tab) 25 mg BID PO 01/15/18 21:00 02/13/18 20:59 01/17/18 07:41 25 MG Clopidogrel Bisulfate (plAVix TAB) 75 mg QAM PO 01/16/18 09:00 02/15/18 08:59 01/17/18 07:41 75 MG Apixaban (Eliquis Tab) 5 mg BID PO 01/16/18 21:00 02/15/18 20:59 01/17/18 07:41 5 MG Lab Results: 01/17/18 04:48 01/17/18 04:48 Test 01/16/18 14:21 01/17/18 04:48 01/17/18 07:09 Kaolin Activated Coagulation Time 246 SECONDS (94-140) Red Blood Count 4.89 M/uL (4.7-6.1) Mean Corpuscular Volume 83.8 fL (80-100) Mean Corpuscular Hemoglobin 29.2 pg (25-34) Mean Corpuscular Hemoglobin Concent 34.9 g/dl (32-36) RDW Standard Deviation 40.0 fL (36.4-46.3) RDW Coefficient of Variation 13.3 % (11.5-14.5) Mean Platelet Volume 9.5 fL (7.4-10.4) Activated Partial Thromboplast Time 29.0 SECONDS (21.0-31.0) Partial Thromboplastin Ratio 1.1 Anion Gap 6.0 mmol/L (3-11) Est Creatinine Clear Calc Drug Dose 56.7 ml/min Estimated GFR () 65.3 Estimated GFR (Non- 56.3 BUN/Creatinine Ratio 11.9 (10-20) Calcium Level 8.9 mg/dl (8.5-10.1) Phosphorus Level 2.4 mg/dl (2.5-4.9) Magnesium Level 1.8 mg/dl (1.8-2.4) Bedside Glucose 126 mg/dl (70-99)
[2018-01-17 10:37] VITALS: BP 123/67; PULSE 82; TEMP 36.7; O2SAT 95
[2018-01-17] MEDS ORDERED: PLV75 PO ×2 (11:15→11:22)
[2018-01-17 11:30] VITALS: BP 112/56; PULSE 77; TEMP 36.7; O2SAT 94
--- NOTE | 2018-01-17 16:50 | Discharge Summary ---
Discharge Summary Date of Service January 17, 2018. Discharge Summary Admission Date: January 16, 2018 at 15:28 Discharge Date: January 17, 2018 Discharge Disposition: Home Principal Diagnosis: acute systolic heart failure, aflutter, CAD s/p stent x2 Medication Reconciliation New Medications: Apixaban (Eliquis) 2.5 Mg Tab 5 MG PO BID, #60 TAB 6 Refills . Clopidogrel Bisulfate (Clopidogrel) 75 Mg Tab 75 MG PO QAM, #32 TAB 6 Refills . Metoprolol Tartrate (Lopressor) 25 Mg Tab 25 MG PO BID, #60 TAB . Continued Medications: Aspirin (Aspirin Ec) 81 Mg Tab 81 MG PO DAILY Cyanocobalamin (Vitamin B12 100 Mcg) 100 Mcg Tab 100 MCG PO DAILY, TAB Glipizide (Glipizide Er) 10 Mg Tab 10 MG PO BID, TAB Metformin HCl (Metformin HCl ER) 1,000 Mg Tab 1000 MG PO BID restart on sunday01/19/18 Psyllium (Metamucil) 48.57 % Pow 1 DOSE PO DAILY PRN for Constipation Rosuvastatin Calcium (Crestor) 40 Mg Tab 20 MG PO DAILY, TAB Discontinued Medications: Amlodipine (Norvasc) 5 Mg Tab 2.5 MG PO BID, TAB Hctz/Lisinopril (Lisinopril/Hctz 20/25 Mg) 1 Ea Tab 1 TAB PO DAILY, TAB Discharge Exam Review of Systems: Constitutional: No fever, No chills, No weakness Respiratory: No cough, No sputum, No shortness of breath Physical Exam: General Appearance: WD/WN, no apparent distress Neck: supple, no JVD Respiratory/Chest: chest non-tender, lungs clear, normal breath sounds Abdomen / GI: normal bowel sounds, soft Hospital Course Mr. Smith is an 82 year old man here for A.flutter with RVR A.flutter RVR, triple vessel CAD, - - consulted cardiology -stent deployed in RCA and LAD - Echo showed: Left ventricular systolic function is severely reduced. * Ejection Fraction = 20-25%. 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 Other stanford hypokinetic. * There is mild mitral regurgitation. - NSR since converting in the ED full AC with Dr Praneeth Garg will determine eventual duration - continue ASA, BB,bp does not allow restart of JULISA will re evaluate after cardiology follow up Hypomagnesemia replete EITAN on CKD stage III follow as outpt HTN, HLD--stable -Continue ASA, , Crestor 20 mg PO hs Metoprolol -Lisinopril/HCTZ held due to EITAN - -Cover with hydralazine 10 mg IV q6h prn SBP >180 DM II--HgbA1c 7.3 on 12/28/17 restart glipizide and hold metformin to restart 72 hours after cath Prostate cancer--noted. Pt denies any h/o prostatectomy, chemo or radiation. Being monitored by urology Code Status -Level I, FULL RESUSCITATION STATUS Total Time Spent: Greater than 30 minutes This includes examination of the patient, discharge planning, medication reconciliation, and communication with other providers. Discharge Instructions Please refer to the electronic Patient Visit Report (Discharge Instructions) for additional information.
== END 2018-01-17 12:00 | disposition home or self-care (01) | DRG 246 ==
LOC: C.EDB 14:32 → C.2E 16:49 → ENRESERV 17:05 → OBSVTOIN 01-16 15:28
PROVIDERS: ADMIT Internal Medicine; ATTEND Internal Medicine
PROC: B2111ZZ Fluoroscopy of Multiple Coronary Arteries using Low Osmolar Contrast (ICD-10-PCS; 2018-01-15)
PROC: 4A033BC Measurement of Arterial Pressure, Coronary, Percutaneous Approach (ICD-10-PCS; 2018-01-15)
PROC: 4A023N7 Measurement of Cardiac Sampling and Pressure, Left Heart, Percutaneous Approach (ICD-10-PCS; 2018-01-15)
PROC: 027034Z Dilation of Coronary Artery, One Artery with Drug-eluting Intraluminal Device, Percutaneous Approach (ICD-10-PCS; principal; 2018-01-16 11:30)
DX: I48.92 Unspecified atrial flutter (principal); I50.21 Acute systolic (congestive) heart failure; I13.0 Hypertensive heart and chronic kidney disease with heart failure and stage 1 through stage 4 chronic kidney disease, or unspecified chronic kidney disease; N17.9 Acute kidney failure, unspecified; I25.119 Atherosclerotic heart disease of native coronary artery with unspecified angina pectoris; C61 Malignant neoplasm of prostate; I42.9 Cardiomyopathy, unspecified; I25.82 Chronic total occlusion of coronary artery; I48.91 Unspecified atrial fibrillation; E11.21 Type 2 diabetes mellitus with diabetic nephropathy; E78.5 Hyperlipidemia, unspecified; Z88.8 Allergy status to other drugs, medicaments and biological substances; I44.7 Left bundle-branch block, unspecified; N18.3 Chronic kidney disease, stage 3 (moderate); Z79.82 Long term (current) use of aspirin; Z79.84 Long term (current) use of oral hypoglycemic drugs; E66.9 Obesity, unspecified; E83.42 Hypomagnesemia

== ENCOUNTER → 2018-04-30 | Outpatient (CLI) | payer OTHER ==
[~2018-04-30] MED LIST changes: -AMLODIPINE PO; -ASPCH81 PO; +ASPI81TA28 PO; -ATOR-54 PO; -CRS20 PO; +CYAN100T6 PO; +ELQ25 PO; -GLC500 PO; +GLIP-199 PO; -GLIPIZIDE PO; +LPR25 PO; -LSN/2025 PO; +METF-841 PO; +PLV75 PO; +PSYL48.59 PO; -PSYL55.43; +ROSU40TA PO
== END | disposition home or self-care (01) ==
LOC: C.LAB1850 12:08
PROVIDERS: ATTEND Physician Assistant
DX: R39.9 Unspecified symptoms and signs involving the genitourinary system (principal)

== ENCOUNTER 2020-05-28 03:17 | Observation (INO) ==
[2020-05-28] MEDS ORDERED: DEXTROSE 10% 1,000 ML IV SCH (03:45)
[2020-05-28 04:24] LABS: Eosinophils # (auto) 0.15 K/uL (0-0.5); Eosinophils % (auto) 1.5 %; Hematocrit (blood only) 32.6 % (42-52); Hemoglobin 10.9 g/dL (14.0-18.0); Immature Granulocytes # (auto) 0.01 K/uL (0.00-0.02); Immature Granulocytes % (auto) 0.1 %; Lymphocytes # (auto) 0.28 K/uL (1.2-3.4); Lymphocytes % (auto) 2.7 %; Mean Corpuscular Hemoglobin 29.3 pg (25-34); Mean Corpuscular Hgb Conc 33.4 g/dL (32-36); Mean Corpuscular Volume 87.6 fL (80-100); Mean Platelet Volume 8.9 fL (7.4-10.4); Monocytes # (auto) 0.18 K/uL (0.11-0.59); Monocytes % (auto) 1.8 %; Neutrophils # (auto) 9.59 K/uL (1.4-6.5); Neutrophils % (auto) 93.9 %; Platelet Count 229 K/uL (130-400); RDW Coefficient of Variation 15.3 % (11.5-14.5); RDW Standard Deviation 47.1 fL (36.4-46.3); Red Blood Count 3.72 M/uL (4.7-6.1); White Blood Count 10.21 K/uL (4.8-10.8)
[2020-05-28 04:35] LABS: Partial Thromboplastin Ratio 1.1; Partial Thromboplastin Time 30.9 Seconds (21.0-31.0)
[2020-05-28 04:40] LABS: Albumin Level 3.1 gm/dl (3.4-5.0); BUN Creatinine Ratio 16.7 (10-20); Calcium 8.9 mg/dl (8.5-10.1); Creatinine Clr Calc Pharmacy 58.9 ml/min; Est GFR (African American) 74.5; Est GFR (Non-African American) 64.3; Magnesium 1.6 mg/dl (1.8-2.4)
[2020-05-28 04:43] LABS: Appearance Urine Turbid (Clear); Bacteria Urine Automated Negative (Negative); Bilirubin Urine Negative (Negative); Blood Urine 3+ (Negative); Color Urine Orange; Epithelial Cell Urine Auto 20-30 /lpf (0-5); Glucose Urine UA Negative (Negative); Ketones Urine Negative (Negative); Leukocyte Esterase Urine 1+ (Negative); Nitrite Urine Negative (Negative); Protein Urine 2+ (Negative); RBC Urine Automated >30 /hpf (0-4); Specific Gravity Urine 1.025 (1.000-1.030); Urobilinogen Urine Negative (Negative)
[2020-05-28 04:45] LABS: Albumin Globulin Ratio 0.8 (0.9-2); Bilirubin,Total 0.5 mg/dl (0.2-1); Creatine Kinase MB 2.5 ng/ml (0.5-3.6); Globulin 4.1 gm/dl (2.5-4.0); Total Protein 7.2 gm/dl (6.4-8.2)
[2020-05-28] MEDS ORDERED: cefTRIAXone SODIUM 2,000 MG/70 ML BAG IV STA (04:54)
--- NOTE | 2020-05-28 06:17 | History & Physical Report ---
Date of Service May 28, 2020 Assessment & Plan (1) Hypoglycemia: 85-year-old male with history of diabetes on oral agents presenting with persistent hypoglycemia. Blood sugar on arrival = 68. Patient currently on a D10 drip at 125 mL/h, repeat fingerstick = 101. Patient reports decreased p.o. intake and poor appetite of late. Suspect hypoglycemia is result of medication effects in setting of decreased oral intake. Less likely secondary to infection. No evidence of liver or pancreatic dysfunction. -Admit to medical floor telemetry monitoring Continue dextrose 10% at 125 mL/h Fingerstick q1h until blood sugar stable Encourage p.o. intake Hold metformin and glipizide for now. Consider discontinuing glipizide on discharge Present on Admission?: Yes (2) AF (paroxysmal atrial fibrillation): Patient V paced at 75 bpm. Anticoagulated with Eliquis. Continue metoprolol. May consider alternative rate controlling agent as beta blockers have been known to mask symptoms of hypoglycemia. Continue Eliquis Present on Admission?: Yes (3) Benign prostatic hyperplasia with urinary obstruction and other lower urinary tract symptoms: Chronic. Stable. Patient urinating without difficulty Continue alfuzosin and finasteride Present on Admission?: Yes (4) Bladder cancer: Status post chemotherapy currently on radiation Outpatient follow-up as scheduled Present on Admission?: Yes (5) CAD (coronary artery disease): Chronic. Stable. Patient denies chest pain or palpitations Continue metoprolol 200 mg p.o. every morning Continue lisinopril/HCTZ Continue atorvastatin 80 mg Present on Admission?: Yes (6) Cardiomyopathy: Patient appears euvolemic on exam, no evidence of failure Continue to monitor volume status -Continue beta-art and JULISA inhibitor Present on Admission?: Yes (7) Diabetes mellitus, type 2: Chronic. With hypoglycemia. Last hemoglobin A1c = 5.4 05/17/2020. Patient currently on metformin 1000 mg p.o. twice daily and glipizide 10 mg p.o. twice daily. Question overmedication at this time in setting of active cancer, decreased oral intake Management of hypoglycemia as above Hold metformin and glipizide Continue to monitor Present on Admission?: Yes (8) Hypercholesterolemia: Chronic. Stable. Continue atorvastatin Present on Admission?: Yes (9) Hypertension: Blood pressure stable Detailed continue metoprolol, lisinopril/HCTZ Continue to monitor FEND10 drip as above, monitor electrolytes, magnesium repletion, consistent carb diet as tolerated, encourage p.o. intake Prophylaxiscontinue Eliquis anticoagulation Codef[place] per discussion with patient Dispositionadmit to medical floor telemetry History of Present Illness Chief Complaint: Hypoglycemia Primary Care Provider: Sim Blackman MD Mr. Smith is an 85-year-old male presenting with hypoglycemia. Patient has a history of atrial fibrillation on Eliquis anticoagulation, diabetes on oral medications, hypertension, hyperlipidemia, bladder cancer status post chemotherapy currently on radiation therapy. Patient reports that yesterday morning (05/27/2020) around 11:30 he became hypoglycemic. His noted that he was slurring his speech. He checked his blood sugar and it was found to be 40. His called 911 and EMS arrived and administered IV dextrose and the patient's blood sugar improved to 160. His blood sugar remained fairly stable throughout the day. However, this morning it 0200 the patient was again slurring his words and became slightly confused. His checked his blood sugar and found to be 30. He ate a peanut butter sandwich and drank some orange juice and came to the hospital. Blood sugar found to be 68. He was started on a dextrose drip. Patient reports that he typically does not feel symptomatic with his hypoglycemia. His suspects hypoglycemia when the patient is slurring his speech. Overall however, patient's blood sugar is fairly well controlled and he does not report frequent episodes of hypoglycemia. He denies fever/chills/night sweats/malaise. Denies chest pain/cough/shortness of breath/abdominal pain/nausea/vomiting/diarrhea/constipation. Denies edema/jaundice/icterus. He does report some mild dysuria. He also states that he has been feeling more fatigued and having decreased appetite since his radiation pattern was changed. His concurs that he eats less than before. ER course: Ceftriaxone 2 grams IV, dextrose 10% IV at 125 mL/h Allergies Allergy/AdvReac Type Severity Reaction Status Date / Time No Known Allergies Allergy Verified 05/28/20 04:15 Home Medications Home Medications Medication Instructions Recorded Confirmed Type Eliquis 5 mg PO BID 12/31/18 05/28/20 History atorvastatin 80 mg PO QAM 12/31/18 05/28/20 History glipizide 10 mg PO BID 12/31/18 05/28/20 History lisinopril-hydrochlorothiazide 1 tab PO QAM 12/31/18 05/28/20 History metformin 1,000 mg PO BID 12/31/18 05/28/20 History alfuzosin 10 mg PO QPM 11/13/19 05/28/20 History finasteride 5 mg PO QPM 11/13/19 05/28/20 History cyanocobalamin (vitamin B-12) 1,000 mcg PO DAILY 03/05/20 05/28/20 History 1,000 mcg capsule metoprolol succinate 200 mg 200 mg PO QAM tab 03/05/20 05/28/20 History tablet,extended release 24 hr mirabegron 25 mg tablet,extended 25 mg PO DAILY 05/10/20 05/28/20 History release 24 hr furosemide 20 mg PO QAM PRN 05/28/20 05/28/20 History Past Med/Surg History Medical History (Updated 05/28/20 @ 06:15 by Greta Downing DO) Arthritis Atrial fibrillation Per Dr. Tidwell 06/16/19: "He appears to have very regular and fast atrial arrhythmia. This is likely an atrial flutter...he appears to have good LV pacing overall and is not overtly symptomatic. At this point would seem reasonable simply continue him on anticoagulation and metoprolol" Bladder cancer (03/11/20) CAD (coronary artery disease) Severe multivessel CAD status post PCI of mid RCA and late-mid LAD 01/2018 Cancer prostate (under surveillance) Cardiomyopathy EF 30-35%. S/P ICD. Diabetes mellitus, type 2 NIDDM Hyperlipidemia Hypertension LBBB (left bundle branch block) Obesity Urinary frequency Surgical History (Updated 04/01/20 @ 09:41 by Lindsay Pickering, SH[facility]) History of cardiac cath 2017 History of cataract surgery 2018 - LEFT/RIGHT History of colonoscopy >10 years ago History of heart artery stent JANUARY 2018-2 STENTS PLACED [facility] History of tonsillectomy Removed age 3 Hx of transurethral destruction of bladder lesion 03/11/2020 (Dr. Griffiths) - Positive for Urothelial Cancer Pacemaker ICD/pacemaker. Placed 05/[address] Arellano. ICD for primary prevention of sudden cardiac as well as biV pacing for resynchronization therapy (pt with severe LV dysfunction) Family History (Updated 04/01/20 @ 09:49 by Lindsay Pickering RN) Mother , Passed age 94 of CHF No problems noted. Father , Passed age 80 of CHF No problems noted. Brother Prostate cancer Brother No problems noted. Sister No problems noted. Sister No problems noted. Sister , Passed age 72 of Lung Cancer No problems noted. Son , Passed age 31 of drowning No problems noted. Son No problems noted. Son No problems noted. Son No problems noted. Son No problems noted. Son No problems noted. Daughter No problems noted. Daughter No problems noted. Daughter No problems noted. Daughter , Passed from MVA No problems noted. 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 Feels Safe at Home: Yes Childhood Exposure to Second-Hand Smoke: Yes caffeine: No during the past year weight has: remained stable Dental Care, Regularly: No Review of Systems Review of Systems: All systems reviewed & are unremarkable except as noted in HPI & below Physical Exam Physical Exam: General: patient resting comfortably, NAD, non-toxic in appearance, AA&O x 4 Skin: warm, dry, intact, no rashes or lesions HEENT: NC/AT, PERRL, EOMI, anicteric sclera, conjunctiva without injection, external ear normal to inspection and nontender, nares patent, dry mucus membranes, dentition intact, no oropharyngeal lesions, neck supple, trachea midline, no LAD, no thyromegaly, no JVD Heart: +S1/S2, regular, no m/r/g, pacemaker present left chest, nontender to palpation Lungs: equal air entry bilaterally, no rales/rhonchi/wheezes Abd: +BS, soft, NT/ND, no masses/organomegaly/ascites Ext: warm, 2+ pulses in UE/LE bilaterally, no clubbing/cyanosis or edema Neuro: nonfocal, patient AA&O x 4, speech intact, no facial droop, moving all extremities on command with equal strength 5/5 Results & Data Results & Data ([facility]) Vital Signs (Past 12 Hours) Vital Signs Temp Pulse Pulse Resp BP BP Pulse Ox 05/28/20 05:30 68 18 142/66 H 99 05/28/20 05:00 70 24 143/73 H 97 05/28/20 04:37 71 21 143/76 H 97 05/28/20 04:31 94 05/28/20 03:59 65 17 129/81 93 05/28/20 03:52 98 05/28/20 03:21 36.5 C 78 18 129/63 97 Laboratory Results Lab Results 05/28/20 05/28/20 05/28/20 Range/Units 03:34 04:10 04:10 WBC 10.21 (4.8-10.8) K/uL RBC 3.72 L (4.7-6.1) M/uL Hgb 10.9 L (14.0-18.0) g/dL Hct 32.6 L (42-52) % MCV 87.6 (80-100) fL MCH 29.3 (25-34) pg MCHC 33.4 (32-36) g/dL RDW Std Deviation 47.1 H (36.4-46.3) fL RDW Coeff of Felice 15.3 H (11.5-14.5) % Plt Count 229 (130-400) K/uL MPV 8.9 (7.4-10.4) fL Immature Gran % (Auto) 0.1 % Neut % (Auto) 93.9 % Lymph % (Auto) 2.7 % Dukes % (Auto) 1.8 % Eos % (Auto) 1.5 % Baso % (Auto) 0.0 % Neut # (Auto) 9.59 H (1.4-6.5) K/uL Lymph # (Auto) 0.28 L (1.2-3.4) K/uL Dukes # (Auto) 0.18 (0.11-0.59) K/uL Eos # (Auto) 0.15 (0-0.5) K/uL Baso # (Auto) 0.00 (0-0.2) K/uL Immature Gran # (Auto) 0.01 (0.00-0.02) K/uL PT 11.0 (9.0-12.0) Seconds INR 1.0 (0.9-1.1) APTT 30.9 (21.0-31.0) Seconds PTT Ratio 1.1 Sodium (136-145) mmol/L Potassium (3.5-5.1) mmol/L Chloride (98-107) mmol/L Carbon Dioxide (21-32) mmol/L Anion Gap (3-11) BUN (7-18) mg/dl Creatinine (0.6-1.4) mg/dl Est Cr Clr Drug Dosing ml/min Est GFR ( Amer) Est GFR (Non-Af Amer) BUN/Creatinine Ratio (10-20) Glucose (70-99) mg/dl POC Glucose 82 (70-99) mg/dl Lactate (0.4-2.0) mmol/L Calcium (8.5-10.1) mg/dl Magnesium (1.8-2.4) mg/dl Total Bilirubin (0.2-1) mg/dl AST (15-37) U/L ALT (12-78) U/L Alkaline Phosphatase (45-117) U/L Total Creatine Kinase (39-308) U/L CK-MB (CK-2) (0.5-3.6) ng/ml CK/CKMB % Calc (0-3.0) Total Protein (6.4-8.2) gm/dl Albumin (3.4-5.0) gm/dl Globulin (2.5-4.0) gm/dl Albumin/Globulin Ratio (0.9-2) Urine Color Urine Appearance (Clear) Urine pH (4.5-7.5) Ur Specific [place] (1.000-1.030) Urine Protein (Negative) Urine Glucose (UA) (Negative) Urine Ketones (Negative) Urine Blood (Negative) Urine Nitrite (Negative) Urine Bilirubin (Negative) Urine Urobilinogen (Negative) Ur Leukocyte Esterase (Negative) Urine WBC (Auto) (0-5) /hpf Urine RBC (Auto) (0-4) /hpf U Hyaline Cast (Auto) (0-5) /lpf U Epithel Cells (Auto) (0-5) /lpf Urine Bacteria (Auto) (Negative) 05/28/20 05/28/20 05/28/20 Range/Units 04:10 04:24 04:28 WBC (4.8-10.8) K/uL RBC (4.7-6.1) M/uL Hgb (14.0-18.0) g/dL Hct (42-52) % MCV (80-100) fL MCH (25-34) pg MCHC (32-36) g/dL RDW Std Deviation (36.4-46.3) fL RDW Coeff of Felice (11.5-14.5) % Plt Count (130-400) K/uL MPV (7.4-10.4) fL Immature Gran % (Auto) % Neut % (Auto) % Lymph % (Auto) % Dukes % (Auto) % Eos % (Auto) % Baso % (Auto) % Neut # (Auto) (1.4-6.5) K/uL Lymph # (Auto) (1.2-3.4) K/uL Dukes # (Auto) (0.11-0.59) K/uL Eos # (Auto) (0-0.5) K/uL Baso # (Auto) (0-0.2) K/uL Immature Gran # (Auto) (0.00-0.02) K/uL PT (9.0-12.0) Seconds INR (0.9-1.1) APTT (21.0-31.0) Seconds PTT Ratio Sodium 138 (136-145) mmol/L Potassium 4.0 (3.5-5.1) mmol/L Chloride 108 H (98-107) mmol/L Carbon Dioxide 22 (21-32) mmol/L Anion Gap 8.0 (3-11) BUN 17 (7-18) mg/dl Creatinine 1.04 (0.6-1.4) mg/dl Est Cr Clr Drug Dosing 58.9 ml/min Est GFR ( Amer) 74.5 Est GFR (Non-Af Amer) 64.3 BUN/Creatinine Ratio 16.7 (10-20) Glucose 68 L (70-99) mg/dl POC Glucose 79 (70-99) mg/dl Lactate 2.9 H* (0.4-2.0) mmol/L Calcium 8.9 (8.5-10.1) mg/dl Magnesium 1.6 L (1.8-2.4) mg/dl Total Bilirubin 0.5 (0.2-1) mg/dl AST 11 L (15-37) U/L ALT 14 (12-78) U/L Alkaline Phosphatase 74 (45-117) U/L Total Creatine Kinase 76 (39-308) U/L CK-MB (CK-2) 2.5 (0.5-3.6) ng/ml CK/CKMB % Calc 3.3 H (0-3.0) Total Protein 7.2 (6.4-8.2) gm/dl Albumin 3.1 L (3.4-5.0) gm/dl Globulin 4.1 H (2.5-4.0) gm/dl Albumin/Globulin Ratio 0.8 L (0.9-2) Urine Color Urine Appearance (Clear) Urine pH (4.5-7.5) Ur Specific [place] (1.000-1.030) Urine Protein (Negative) Urine Glucose (UA) (Negative) Urine Ketones (Negative) Urine Blood (Negative) Urine Nitrite (Negative) Urine Bilirubin (Negative) Urine Urobilinogen (Negative) Ur Leukocyte Esterase (Negative) Urine WBC (Auto) (0-5) /hpf Urine RBC (Auto) (0-4) /hpf U Hyaline Cast (Auto) (0-5) /lpf U Epithel Cells (Auto) (0-5) /lpf Urine Bacteria (Auto) (Negative) 05/28/20 05/28/20 Range/Units 04:34 05:20 WBC (4.8-10.8) K/uL RBC (4.7-6.1) M/uL Hgb (14.0-18.0) g/dL Hct (42-52) % MCV (80-100) fL MCH (25-34) pg MCHC (32-36) g/dL RDW Std Deviation (36.4-46.3) fL RDW Coeff of Felice (11.5-14.5) % Plt Count (130-400) K/uL MPV (7.4-10.4) fL Immature Gran % (Auto) % Neut % (Auto) % Lymph % (Auto) % Dukes % (Auto) % Eos % (Auto) % Baso % (Auto) % Neut # (Auto) (1.4-6.5) K/uL Lymph # (Auto) (1.2-3.4) K/uL Dukes # (Auto) (0.11-0.59) K/uL Eos # (Auto) (0-0.5) K/uL Baso # (Auto) (0-0.2) K/uL Immature Gran # (Auto) (0.00-0.02) K/uL PT (9.0-12.0) Seconds INR (0.9-1.1) APTT (21.0-31.0) Seconds PTT Ratio Sodium (136-145) mmol/L Potassium (3.5-5.1) mmol/L Chloride (98-107) mmol/L Carbon Dioxide (21-32) mmol/L Anion Gap (3-11) BUN (7-18) mg/dl Creatinine (0.6-1.4) mg/dl Est Cr Clr Drug Dosing ml/min Est GFR ( Amer) Est GFR (Non-Af Amer) BUN/Creatinine Ratio (10-20) Glucose (70-99) mg/dl POC Glucose 101 H (70-99) mg/dl Lactate (0.4-2.0) mmol/L Calcium (8.5-10.1) mg/dl Magnesium (1.8-2.4) mg/dl Total Bilirubin (0.2-1) mg/dl AST (15-37) U/L ALT (12-78) U/L Alkaline Phosphatase (45-117) U/L Total Creatine Kinase (39-308) U/L CK-MB (CK-2) (0.5-3.6) ng/ml CK/CKMB % Calc (0-3.0) Total Protein (6.4-8.2) gm/dl Albumin (3.4-5.0) gm/dl Globulin (2.5-4.0) gm/dl Albumin/Globulin Ratio (0.9-2) Urine Color [place] Urine Appearance Turbid A (Clear) Urine pH 5.0 (4.5-7.5) Ur Specific [place] 1.025 (1.000-1.030) Urine Protein 2+ H (Negative) Urine Glucose (UA) Negative (Negative) Urine Ketones Negative (Negative) Urine Blood 3+ H (Negative) Urine Nitrite Negative (Negative) Urine Bilirubin Negative (Negative) Urine Urobilinogen Negative (Negative) Ur Leukocyte Esterase 1+ H (Negative) Urine WBC (Auto) 5-10 H (0-5) /hpf Urine RBC (Auto) >30 H (0-4) /hpf U Hyaline Cast (Auto) 1-5 (0-5) /lpf U Epithel Cells (Auto) 20-30 H (0-5) /lpf Urine Bacteria (Auto) Negative (Negative) Diagnostic Findings Chest x-ray: By my interpretation, AICD in place, no evidence of CHF, pneumonia, pneumothorax ECG Additional Comments: EKG a sensed, V paced at 75 bpm Code Status & VTE Plan VTE Prophylaxis Plan VTE Prophylaxis will be ordered: Yes PG Care Time/CCT Total # of Minutes Spent Total Time Spent with Patient: Total time spent is greater than 50% in coordination of care (as documented) at patient's floor/unit and/or counseling patient: Coding Level of Care Code 16813 Initial Inpt Care Lvl 3 Diagnoses Hypoglycemia E16.2 AF (paroxysmal atrial fibrillation) I48.0 Benign prostatic hyperplasia with urinary obstruction and other lower urinary tract symptoms N40.1; N13.8 Bladder cancer C67.8 Bladder location: overlapping sites CAD (coronary artery disease) I25.10 Coronary Disease-Associated Artery/Lesion type: [place] artery [place] vs. 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 transplanted heart: [place] heart Associated angina: without angina Qualified Code(s): I25.10 - Atherosclerotic heart disease of [place] coronary artery without angina pectoris (3) Cardiomyopathy Cardiomyopathy type: unspecified Qualified Code(s): I42.9 - Cardiomyopathy, unspecified (4) Diabetes mellitus, type 2 Diabetes mellitus care home insulin use: without care home use Diabetes mellitus complication status: with hypoglycemia Diabetes mellitus complication detail: without coma Qualified Code(s): E11.649 - Type 2 diabetes mellitus with hypoglycemia without coma (5) Hypertension Hypertension type: essential hypertension Qualified Code(s): I10 - Essential (primary) hypertension
[2020-05-28] MEDS ORDERED: ACETAMINOPHEN 325 MG TAB PO PRN (06:58)
[2020-05-28] MEDS ORDERED: CARBOHYDRATES FOR HYPOGLYCEMIA PO PRN (06:58)
[2020-05-28] MEDS ORDERED: GLUCAGON FOR INJ 1 MG VIAL SQ PRN (06:58)
[2020-05-28] MEDS ORDERED: DEXTROSE 50% 50 ML SYRINGE IV PRN (06:58)
[2020-05-28] MEDS ORDERED: GLUCOSE 10 TABS/TUBE PO PRN (06:58)
[2020-05-28] MEDS ORDERED: GLUCOSE 40% GEL 15 GM TUBE PO PRN (06:58)
[2020-05-28] MEDS: MAGNESIUM SULFATE / D5W 1 GM/100 ML BAG IV SCH ×2 (07:45→07:46)
[2020-05-28] MEDS: DEXTROSE 10% 1,000 ML IV SCH ×2 (07:45→15:18)
[2020-05-28] MEDS: CYANOCOBALAMIN 500 MCG TABLET (VITAMIN B-12) PO SCH (08:51)
[2020-05-28] MEDS: MIRABEGRON ER 25 MG TAB PO SCH (08:51)
[2020-05-28] MEDS: APIXABAN 5 MG TABLET PO SCH ×2 (08:51→22:01)
[2020-05-28] MEDS: LISINOPRIL/HCTZ 20/25MG 1 TAB PO SCH (08:52)
[2020-05-28] MEDS: METOPROLOL SUCC 50MG EXT REL TAB PO SCH (08:52)
[2020-05-28] MEDS: ATORVASTATIN 40 MG TAB PO SCH (08:52)
--- NOTE | 2020-05-28 09:30 | XRay Report ---
XR chest 1V portable HISTORY: SEPSIS COMPARISON: Chest 11/24/2019. FINDINGS: No pneumothorax. No pleural effusions. The heart remains mildly enlarged. No new focal lung consolidations to suggest pneumonia. No evidence for pulmonary edema. Left-sided pacemaker/defibrill ator is again noted. Degenerative changes within the shoulders. IMPRESSION: Stable mild cardiomegaly. ACT 112: Negative or not required by law. Electronically signed by: Meek Green M.D. 05/28/2020 9:28 AM
--- NOTE | 2020-05-28 12:42 | Electrocardiogram Report ---
Test Reason : Blood Pressure : / mmHG Vent. Rate : 073 BPM Atrial Rate : 073 BPM P-R Int : 124 ms QRS Dur : 162 ms QT Int : 420 ms P-R-T Axes : 000 -56 085 degrees QTc Int : 462 ms Atrial-sensed ventricular-paced rhythm Biventricular pacemaker detected Abnormal ECG When compared with ECG of 24-NOV-2019 12:51, Vent. rate has increased BY 4 BPM Confirmed by Koby Tidwell ([id number]) on 05/28/2020 12:42:07 PM Referred By: REFERRED SELF Confirmed By:Lenin Tidwell
--- NOTE | 2020-05-28 20:23 | Communication Note ---
Date of Service: May 28, 2020 Saw patient late this afternoon. He was beginning to eat his dinner. He felt well and was w/o complaints. He has had no further hypoglycemia since early this am. He denied any cp, dyspnea or abd pain. He verified that he had lost about 20 pounds of weight over the last few months - presumably from his bladder ca. vitals - T 36.3 BP 126/68 P 68 RR 18 O2 sats 100% RA most recent BSG - 184 exam - gen - NAD neck - no JVD mouth - MMM heart - RRR, s1 s2, no murmur lungs - CTA b/l, minimal dry rales right base abd - soft NT ND BS+ ext - no edema 05/17/20 -- HbA1C 5.4% A/P: Severe, symptomatic hypoglycemia - resolved. Iatrogenic - on dual oral DM agents at home (glipizide, metformin) in the face of significant weight loss and low HbA1C. Wean Dextrose drip - cut to 50cc/hr now. If BSGs remain stable for 4-6 hours then wean again to 25cc/hr. Then stop fluids 6 hours later if doing well. Last dose of glipizide was 36 hours ago - by tomorrow majority of med is out of his system. At minimum would NOT continue glipizide moving forward. Probably doesn't need metformin either. Other medical issues - chronic systolic CHF, etc - stable. Updated fiance by phone this evening. Labs in am. Sim Ontiveros MD
[2020-05-28] MEDS ORDERED: FINASTERIDE 5 MG TAB PO SCH (21:00)
[2020-05-28] MEDS ORDERED: ALFUZOSIN HCL 10 MG TAB PO SCH (21:00)
[2020-05-29] MEDS: DEXTROSE 10% 1,000 ML IV SCH (01:27)
[2020-05-29 04:36] VITALS: O2SAT 98
[2020-05-29] MEDS: cefTRIAXone SODIUM 2,000 MG in DEXTROSE 5% 50 ML IV SCH ×2 (05:04→08:48)
[2020-05-29 06:44] LABS: BUN Creatinine Ratio 13.8 (10-20); Creatinine Clr Calc Pharmacy 58.9 ml/min; Est GFR (African American) 74.5; Est GFR (Non-African American) 64.3; Magnesium 1.7 mg/dl (1.8-2.4); Potassium 3.7 mmol/L (3.5-5.1)
[2020-05-29] MEDS: METOPROLOL SUCC 50MG EXT REL TAB PO SCH (07:39)
[2020-05-29] MEDS: APIXABAN 5 MG TABLET PO SCH (07:39)
[2020-05-29] MEDS: LISINOPRIL/HCTZ 20/25MG 1 TAB PO SCH (07:39)
[2020-05-29] MEDS: ATORVASTATIN 40 MG TAB PO SCH (07:39)
[2020-05-29] MEDS: MIRABEGRON ER 25 MG TAB PO SCH (07:39)
[2020-05-29] MEDS: CYANOCOBALAMIN 500 MCG TABLET (VITAMIN B-12) PO SCH (07:40)
[2020-05-29 11:32] VITALS: BP 118/65; PULSE 71; TEMP 97.5
--- NOTE | 2020-05-29 15:53 | Discharge Summary ---
Date of Service May 29, 2020 Admission HPI Per Admitting Provider Mr. Smith is an 85-year-old male presenting with hypoglycemia. Patient has a history of atrial fibrillation on Eliquis anticoagulation, diabetes on oral medications, hypertension, hyperlipidemia, bladder cancer status post chemotherapy currently on radiation therapy. Patient reports that yesterday morning (05/27/2020) around 11:30 he became hypoglycemic. His noted that he was slurring his speech. He checked his blood sugar and it was found to be 40. His called 911 and EMS arrived and administered IV dextrose and the patient's blood sugar improved to 160. His blood sugar remained fairly stable throughout the day. However, this morning it 0200 the patient was again slurring his words and became slightly confused. His checked his blood sugar and found to be 30. He ate a peanut butter sandwich and drank some orange juice and came to the hospital. Blood sugar found to be 68. He was started on a dextrose drip. Patient reports that he typically does not feel symptomatic with his hypoglycemia. His suspects hypoglycemia when the patient is slurring his speech. Overall however, patient's blood sugar is fairly well controlled and he does not report frequent episodes of hypoglycemia. He denies fever/chills/night sweats/malaise. Denies chest pain/cough/shortness of breath/abdominal pain/nausea/vomiting/diarrhea/constipation. Denies edema/jaundice/icterus. He does report some mild dysuria. He also states that he has been feeling more fatigued and having decreased appetite since his radiation pattern was changed. His concurs that he eats less than before. ER course: Ceftriaxone 2 grams IV, dextrose 10% IV at 125 mL/h Principal Diagnosis Hypoglycemia due to medications Discharge Exam Constitutional WD/WN, vitals as above Eyes EOM intact bilaterally; no conjunctival abnormality ENMT external ear and nose normal, oropharynx normal Neck trachea midline, no thyromegaly normal visual inspection Respiratory normal respiratory effort, lungs clear to auscultation no respiratory distress Cardiovascular RRR, no murmur, no edema Gastrointestinal (Abdomen) Inspection/Auscultation: abdomen normal to inspection; abdomen not distended Musculoskeletal no cyanosis or clubbing, extremities motor strength 5/5 Skin no rashes, warm and dry Neurologic moves all extremities and awake Psychiatric Orientation: alert, oriented to person and cooperative Discharge Data Allergies Allergy/AdvReac Type Severity Reaction Status Date / Time No Known Allergies Allergy Verified 05/28/20 04:15 Consultations 05/28/20 04:54 ED Decision to Admit Stat Hospital Course (1) Hypoglycemia: 85-year-old male with history of diabetes on oral agents presenting with persistent hypoglycemia. Blood sugar on arrival = 68. Patient currently on a D10 drip at 125 mL/h, repeat fingerstick = 101. Patient reports decreased p.o. intake and poor appetite of late. Suspect hypoglycemia is result of medication effects in setting of decreased oral intake. Less likely secondary to infection. No evidence of liver or pancreatic dysfunction. - Did well holding meds. Discharged off glipizide and with lowered dose of metoprolol. Possible UTI (though I think more likely contaminant): Was given short course of abx. Can follow cultures with PCP. (2) AF (paroxysmal atrial fibrillation): Patient V paced at 75 bpm. Anticoagulated with Eliquis. Continue metoprolol. May consider alternative rate controlling agent as beta blockers have been known to mask symptoms of hypoglycemia. Continue Eliquis (3) Benign prostatic hyperplasia with urinary obstruction and other lower urinary tract symptoms: Chronic. Stable. Patient urinating without difficulty Continue alfuzosin and finasteride (4) Bladder cancer: Status post chemotherapy currently on radiation Outpatient follow-up as scheduled (5) CAD (coronary artery disease): Chronic. Stable. Patient denies chest pain or palpitations Continue metoprolol 200 mg p.o. every morning Continue lisinopril/HCTZ Continue atorvastatin 80 mg (6) Cardiomyopathy: Patient appears euvolemic on exam, no evidence of failure Continue to monitor volume status -Continue beta-art and JULISA inhibitor (7) Diabetes mellitus, type 2: Chronic. With hypoglycemia. Last hemoglobin A1c = 5.4 05/17/2020. Patient currently on metformin 1000 mg p.o. twice daily and glipizide 10 mg p.o. twice daily. Question overmedication at this time in setting of active cancer, decreased oral intake Management of hypoglycemia as above Hold metformin and glipizide Continue to monitor (8) Hypercholesterolemia: Chronic. Stable. Continue atorvastatin (9) Hypertension: Blood pressure stable Detailed continue metoprolol, lisinopril/HCTZ Continue to monitor Total Time Total Time Spent Total Time Spent (In Minutes): 35 Discharge Plan Discharge Items Patient Disposition: Home - Self-Care Reason For Visit: HYPOGLYCEMIA Discharge Diagnosis: Low blood sugars from medication Activity: Resume your previous activity Non-emergency contact: Primary Care Provider Call non-emergency contact if: your symptoms worsen Follow-up/Referrals: Sim Blackman MD [Primary Care Provider] - Diet: Carb Consistent or DM2 Addtl Attending Provider Instructions: You were admitted to the hospital for low blood sugars. This was likely caused by one of your diabetes medications. As your diet has changed and you have lost some weight, you probably don't need your diabetes medications at such high doses at this point. Please stop the glipizide you were taking before. You just don't need this at this point. For your metformin, we are lowering the dose. Instead of 1,000 mg twice a day, please only take 500 mg twice a day (half a pill instead of the whole pill). Please see Dr. Blackman in clinic in the next week or two with a record of your blood sugars. He may adjust this dose back up, or even stop it all together. Finally, I did send you home with a few days of antibiotics. Your urine showed some mild evidence of a bladder infection, though it's not clear if this was just some bacteria that "caught a ride" in the specimen or were an actual infection. The culture is still pending, so for now, to be safe, we'll send you with a short course of antibiotics. Your first dose of antibiotic will be Sunday morning () because you got your morning dose today in the hospital through the IV. Then take it two times per day after that. Pending Studies at Discharge: Yes Studies:: Urine culture Stand-Alone [facility] Medications and DC Order Prescriptions: New cefdinir 300 mg capsule 300 mg PO BID Qty: 6 RF: 0 Continued Myrbetriq 25 mg tablet extended release 24 hr 25 mg PO DAILY RF: 0 cyanocobalamin (vitamin B-12) 1,000 mcg capsule 1,000 mcg PO DAILY RF: 0 atorvastatin 40 mg Tablet 80 mg PO QAM RF: 0 lisinopril-hydrochlorothiazide 20-25 mg Tablet 1 tab PO QAM RF: 0 Eliquis 5 mg Tablet 5 mg PO BID RF: 0 metoprolol succinate 200 mg tablet extended release 24 hr 200 mg PO QAM RF: 0 furosemide 20 mg tablet 20 mg PO QAM PRN (Reason: Edema) RF: 0 finasteride 5 mg tablet 5 mg PO QPM RF: 0 alfuzosin 10 mg tablet extended release 24 hr 10 mg PO QPM RF: 0 Changed metformin 1,000 mg Tablet 500 mg PO BID Qty: 0 RF: 0 Discontinued glipizide 10 mg Tablet 10 mg PO BID RF: 0 Discharge Orders: Discharge Order (Routine); Ordered 05/29/20 Ordered By: Estiven Rowland Admission Data Admit Date/Time: 05/28/20 05:51 Attending Provider: Estiven Rowland Admit Provider: Greta Downing Primary Care Provider: Sim Blackman Other Providers: Estiven Rowland Other Interventions: Discharge Summary Assessment (RN) Last Done: 05/29/20 12:05 Coding Level of Care Code D/C Day Management >30 mins Diagnoses Hypoglycemia E16.2 AF (paroxysmal atrial fibrillation) I48.0 Benign prostatic hyperplasia with urinary obstruction and other lower urinary tract symptoms N40.1; N13.8 Bladder cancer C67.8 Bladder location: overlapping sites CAD (coronary artery disease) I25.10 Coronary Disease-Associated Artery/Lesion type: [place] artery [place] vs. transplanted heart: [place] heart Associated angina: without angina Cardiomyopathy I42.9 Cardiomyopathy type: unspecified Diabetes mellitus, type 2 E11.649 Diabetes mellitus skilled nursing insulin use: without terminal supervisor use Diabetes mellitus complication status: with hypoglycemia Diabetes mellitus complication detail: without coma Hypercholesterolemia E78.00 Hypertension I10 Hypertension type: essential hypertension
--- NOTE | 2020-05-31 05:46 | Emergency Department Note ---
History of Present Illness General Chief complaint: Hypoglycemia Stated complaint: LOW BLOOD SUGAR Source: patient, family, EMS, RN notes reviewed and old records reviewed Mode of arrival: ambulatory Limitations: no limitations History of Present Illness Provider complaint: hypoglycemia x3 episodes Onset (ago): hour(s) greater than 10 Maximum Pain Intensity: 0 Treatments prior to arrival: other (D50) This is an 85-year-old male who EMS was called out to his house twice over concerns with the patient was hypoglycemic twice in the past 2 hours. Patient refused treatment by EMS however did come to the emergency department. Upon arrival to the emergency department the patient does appear slightly confused and was found to be hypoglycemic again. He denies any chest pain shortness of breath or any other issues. The patient does have a history of bladder cancer. Home Medications Home Medications Medication Instructions Recorded Confirmed Type Eliquis 5 mg PO BID 12/31/18 05/28/20 History atorvastatin 80 mg PO QAM 12/31/18 05/28/20 History lisinopril-hydrochlorothiazide 1 tab PO QAM 12/31/18 05/28/20 History alfuzosin 10 mg PO QPM 11/13/19 05/28/20 History finasteride 5 mg PO QPM 11/13/19 05/28/20 History cyanocobalamin (vitamin B-12) 1,000 mcg PO DAILY 03/05/20 05/28/20 History 1,000 mcg capsule metoprolol succinate 200 mg 200 mg PO QAM tab 03/05/20 05/28/20 History tablet,extended release 24 hr mirabegron 25 mg tablet,extended 25 mg PO DAILY 05/10/20 05/28/20 History release 24 hr furosemide 20 mg PO QAM PRN 05/28/20 05/28/20 History cefdinir 300 mg PO BID #6 cap 05/29/20 Rx metformin 500 mg PO BID #0 tab 05/29/20 05/28/20 Rx Allergies Allergy/AdvReac Type Severity Reaction Status Date / Time No Known Allergies Allergy Verified 05/28/20 04:15 Past Med/Surg History Medical History Arthritis Atrial fibrillation Per Dr. Tidwell 06/16/19: "He appears to have very regular and fast atrial arrhythmia. This is likely an atrial flutter...he appears to have good LV pacing overall and is not overtly symptomatic. At this point would seem reasonable simply continue him on anticoagulation and metoprolol" Bladder cancer (03/11/20) CAD (coronary artery disease) Severe multivessel CAD status post PCI of mid RCA and late-mid LAD 01/2018 Cancer prostate (under surveillance) Cardiomyopathy EF 30-35%. S/P ICD. Diabetes mellitus, type 2 NIDDM Hyperlipidemia Hypertension LBBB (left bundle branch block) Obesity Urinary frequency Surgical History History of cardiac cath 2017 History of cataract surgery 2018 - LEFT/RIGHT History of colonoscopy >10 years ago History of heart artery stent JANUARY 2018-2 STENTS PLACED [facility] History of tonsillectomy Removed age 3 Hx of transurethral destruction of bladder lesion 03/11/2020 (Dr. Griffiths) - Positive for Urothelial Cancer Pacemaker ICD/pacemaker. Placed 05/[address] Arellano. ICD for primary prevention of sudden cardiac as well as biV pacing for resynchronization therapy (pt with severe LV dysfunction) Family History Mother , Passed age 94 of CHF No problems noted. Father , Passed age 80 of CHF No problems noted. Brother Prostate cancer Brother No problems noted. Sister No problems noted. Sister No problems noted. Sister , Passed age 72 of Lung Cancer No problems noted. Son , Passed age 31 of drowning No problems noted. Son No problems noted. Son No problems noted. Son No problems noted. Son No problems noted. Son No problems noted. Daughter No problems noted. Daughter No problems noted. Daughter No problems noted. Daughter , Passed from MVA No problems noted. 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 GENERAL - 85-year-old male appearing stated age who is in no acute distress. Communicates well with provider and answers questions appropriately. SKIN - Without rashes. HEAD - NC/AT. EYES - PERRL with EOMI bilaterally. Sclera anicteric. Palpebral conjunctiva pink and moist with no injection noted. EARS - No deformities of external structures noted on gross examination bilaterally. No pain elicited with palpation of the tragus bilaterally. External auditory canals without discharge or otorrhea. Tympanic membranes pearly mckinney without retraction or bulging. No fluid or purulent material visualized behind the TM. Handle of malleus, umbo, cone of light, pars tensa/flaccid all easily visualized. NOSE - Midline and without cyanosis. No epistaxis or purulent drainage noted. Septum midline without deviation or septal hematoma noted. MOUTH/OROPHARYNX - Without perioral cyanosis. Buccal mucosa pink and moist and without leukoplakia. Tongue midline with equal elevation of palate bilaterally. No tonsillar hypertrophy, erythema, or exudates noted. dentition noted. NECK - Neck with FROM. Supple to palpation. lymphadenopathy noted. No nuchal rigidity. LUNGS - Chest wall symmetric without accessory muscle use, intercostals retractions, or central cyanosis. Normal vesicular breath sounds CTA B/L. No wheezes, rales, or rhonchi appreciated. CARDIAC - RRR with S1/S2. No murmur, rubs, or gallops appreciated. ABDOMEN - Abdominal contour without pulsations or visible masses. BS normoactive all four quadrants. No tenderness, palpable masses, hepatosplenomegaly, or ascites noted. EXTREMITIES - No clubbing or peripheral cyanosis. No pretibial edema present. +3/5 radial, posterior tibial, and dorsalis pedis pulses palpated throughout. +5/5 strength noted in UE/LE bilaterally. NEUROLOGIC - Cranial nerves II through XII grossly intact. Sensory intact to light touch throughout. Patellar reflexes +2/4. PSYCH - A&Ox3 and cooperates fully with examiner. Pt is very pleasant and interacts well with examiner. Course Administered Medications Discontinued Medications Alfuzosin HCl (Alfuzosin Hcl 10 Mg Tab) 10 mg PO QPM DIVINE Stop: 06/27/20 20:59 Last Admin: 05/28/20 22:00 Dose: 10 mg Documented by: [id number] Apixaban (Apixaban 5 Mg Tablet) 5 mg PO BID DIVINE Stop: 06/27/20 08:59 Last Admin: 05/29/20 07:39 Dose: 5 mg Documented by: [id number] Admin: 05/28/20 22:01 Dose: 5 mg Documented by: [id number] Admin: 05/28/20 08:51 Dose: 5 mg Documented by: [id number] Atorvastatin Calcium (Atorvastatin 40 Mg Tab) 80 mg PO QAM DIVINE Stop: 06/27/20 08:59 Last Admin: 05/29/20 07:39 Dose: 80 mg Documented by: [id number] Admin: 05/28/20 08:52 Dose: 80 mg Documented by: [id number] Cyanocobalamin (Cyanocobalamin 500 Mcg Tablet (Vitamin B-12)) 1,000 mcg PO DAILY DIVINE Stop: 06/27/20 08:59 Last Admin: 05/29/20 07:40 Dose: 1,000 mcg Documented by: [id number] Admin: 05/28/20 08:51 Dose: 1,000 mcg Documented by: [id number] Finasteride (Finasteride 5 Mg Tab) 5 mg PO QPM DIVINE Stop: 06/27/20 20:59 Last Admin: 05/28/20 21:59 Dose: 5 mg Documented by: [id number] Lisinopril/HCTZ (Lisinopril/Hctz 20/25mg 1 Tab) 1 tab PO QAM DIVINE Stop: 06/27/20 08:59 Last Admin: 05/29/20 07:39 Dose: 1 tab Documented by: [id number] Admin: 05/28/20 08:52 Dose: 1 tab Documented by: [id number] Dextrose (D10w) 1,000 mls @ 125 mls/hr IV .Q8H DIVINE Stop: 06/27/20 03:44 Last Infusion: 05/28/20 07:45 Dose: 0 mls/hr Documented by: [id number] Admin: 05/28/20 04:12 Dose: 125 mls/hr Documented by: [id number] Ceftriaxone Sodium (Rocephin) 2,000 mg in 70 mls @ 140 mls/hr IV NOW STA Stop: 05/28/20 05:23 Last Infusion: 05/28/20 06:07 Dose: 0 mls/hr Documented by: [id number] Admin: 05/28/20 05:36 Dose: 140 mls/hr Documented by: [id number] Dextrose (D10w) 1,000 mls @ 25 mls/hr IV .Q24H DIVINE Stop: 06/27/20 06:57 Last Admin: 05/29/20 01:27 Dose: Not Given Documented by: [id number] Infusion: 05/29/20 01:09 Dose: 0 mls/hr Documented by: [id number] Admin: 05/28/20 15:18 Dose: 125 mls/hr Documented by: [id number] Infusion: 05/28/20 15:18 Dose: 125 mls/hr Documented by: [id number] Admin: 05/28/20 07:45 Dose: 125 mls/hr Documented by: [id number] Ceftriaxone Sodium 2,000 mg/ (Dextrose) 70 mls @ 100 mls/hr IV DAILY DIVINE; Protocol Stop: 06/08/20 05:59 Last Infusion: 05/29/20 09:32 Dose: 0 mls/hr Documented by: [id number] Admin: 05/29/20 08:48 Dose: 100 mls/hr Documented by: [id number] Infusion: 05/29/20 06:38 Dose: 0 mls/hr Documented by: [id number] Admin: 05/29/20 05:04 Dose: 100 mls/hr Documented by: [id number] Magnesium Sulfate/Dextrose (Magnesium Sulfate / D5w) 1 gm in 100 mls @ 50 mls/hr IV Q2H DIVINE Stop: 05/28/20 11:29 Last Infusion: 05/28/20 10:00 Dose: 0 mls/hr Documented by: [id number] Admin: 05/28/20 07:46 Dose: 50 mls/hr Documented by: [id number] Infusion: 05/28/20 07:46 Dose: 50 mls/hr Documented by: [id number] Admin: 05/28/20 07:45 Dose: 50 mls/hr Documented by: [id number] Metoprolol Succinate (Metoprolol Succ 50mg Ext Rel Tab) 200 mg PO QAM DIVINE Stop: 06/27/20 08:59 Last Admin: 05/29/20 07:39 Dose: 200 mg Documented by: [id number] Admin: 05/28/20 08:52 Dose: 200 mg Documented by: [id number] Mirabegron (Mirabegron Er 25 Mg Tab) 25 mg PO DAILY DIVINE Stop: 06/27/20 08:59 Last Admin: 05/29/20 07:39 Dose: 25 mg Documented by: [id number] Admin: 05/28/20 08:51 Dose: 25 mg Documented by: [id number] Medical Decision Making Differential Diagnosis Infection, dehydration, metabolic abnormality, hypo/hyperglycemia, electrolyte disturbance, anemia, hypoxia, cardiac sources, intracerebral event, toxicologic, neurologic, as well as other pathologies. Medical Records Attestation: I reviewed the patient's medical records. Home Medications Current Medication List: was personally reviewed by me Laboratory Data Attestation: I reviewed the patient's lab results. Result diagrams: 05/28/20 04:10 05/29/20 05:35 Lab Results 05/28/20 05/28/20 05/28/20 Range/Units 03:34 04:10 04:10 WBC 10.21 (4.8-10.8) K/uL RBC 3.72 L (4.7-6.1) M/uL Hgb 10.9 L (14.0-18.0) g/dL Hct 32.6 L (42-52) % MCV 87.6 (80-100) fL MCH 29.3 (25-34) pg MCHC 33.4 (32-36) g/dL RDW Std Deviation 47.1 H (36.4-46.3) fL RDW Coeff of Felice 15.3 H (11.5-14.5) % Plt Count 229 (130-400) K/uL MPV 8.9 (7.4-10.4) fL Immature Gran % (Auto) 0.1 % Neut % (Auto) 93.9 % Lymph % (Auto) 2.7 % [place] % (Auto) 1.8 % Eos % (Auto) 1.5 % Baso % (Auto) 0.0 % Neut # (Auto) 9.59 H (1.4-6.5) K/uL Lymph # (Auto) 0.28 L (1.2-3.4) K/uL [place] # (Auto) 0.18 (0.11-0.59) K/uL Eos # (Auto) 0.15 (0-0.5) K/uL Baso # (Auto) 0.00 (0-0.2) K/uL Immature Gran # (Auto) 0.01 (0.00-0.02) K/uL PT 11.0 (9.0-12.0) Seconds INR 1.0 (0.9-1.1) APTT 30.9 (21.0-31.0) Seconds PTT Ratio 1.1 Sodium (136-145) mmol/L Potassium (3.5-5.1) mmol/L Chloride (98-107) mmol/L Carbon Dioxide (21-32) mmol/L Anion Gap (3-11) BUN (7-18) mg/dl Creatinine (0.6-1.4) mg/dl Est Cr Clr Drug Dosing ml/min Est GFR ( Amer) Est GFR (Non-Af Amer) BUN/Creatinine Ratio (10-20) Glucose (70-99) mg/dl POC Glucose 82 (70-99) mg/dl Lactate (0.4-2.0) mmol/L Calcium (8.5-10.1) mg/dl Magnesium (1.8-2.4) mg/dl Total Bilirubin (0.2-1) mg/dl AST (15-37) U/L ALT (12-78) U/L Alkaline Phosphatase (45-117) U/L Total Creatine Kinase (39-308) U/L CK-MB (CK-2) (0.5-3.6) ng/ml CK/CKMB % Calc (0-3.0) Total Protein (6.4-8.2) gm/dl Albumin (3.4-5.0) gm/dl Globulin (2.5-4.0) gm/dl Albumin/Globulin Ratio (0.9-2) Urine Color Urine Appearance (Clear) Urine pH (4.5-7.5) Ur Specific [place] (1.000-1.030) Urine Protein (Negative) Urine Glucose (UA) (Negative) Urine Ketones (Negative) Urine Blood (Negative) Urine Nitrite (Negative) Urine Bilirubin (Negative) Urine Urobilinogen (Negative) Ur Leukocyte Esterase (Negative) Urine WBC (Auto) (0-5) /hpf Urine RBC (Auto) (0-4) /hpf U Hyaline Cast (Auto) (0-5) /lpf U Epithel Cells (Auto) (0-5) /lpf Urine Bacteria (Auto) (Negative) 05/28/20 05/28/20 05/28/20 Range/Units 04:10 04:24 04:28 WBC (4.8-10.8) K/uL RBC (4.7-6.1) M/uL Hgb (14.0-18.0) g/dL Hct (42-52) % MCV (80-100) fL MCH (25-34) pg MCHC (32-36) g/dL RDW Std Deviation (36.4-46.3) fL RDW Coeff of Felice (11.5-14.5) % Plt Count (130-400) K/uL MPV (7.4-10.4) fL Immature Gran % (Auto) % Neut % (Auto) % Lymph % (Auto) % [place] % (Auto) % Eos % (Auto) % Baso % (Auto) % Neut # (Auto) (1.4-6.5) K/uL Lymph # (Auto) (1.2-3.4) K/uL [place] # (Auto) (0.11-0.59) K/uL Eos # (Auto) (0-0.5) K/uL Baso # (Auto) (0-0.2) K/uL Immature Gran # (Auto) (0.00-0.02) K/uL PT (9.0-12.0) Seconds INR (0.9-1.1) APTT (21.0-31.0) Seconds PTT Ratio Sodium 138 (136-145) mmol/L Potassium 4.0 (3.5-5.1) mmol/L Chloride 108 H (98-107) mmol/L Carbon Dioxide 22 (21-32) mmol/L Anion Gap 8.0 (3-11) BUN 17 (7-18) mg/dl Creatinine 1.04 (0.6-1.4) mg/dl Est Cr Clr Drug Dosing 58.9 ml/min Est GFR ( Amer) 74.5 Est GFR (Non-Af Amer) 64.3 BUN/Creatinine Ratio 16.7 (10-20) Glucose 68 L (70-99) mg/dl POC Glucose 79 (70-99) mg/dl Lactate 2.9 H* (0.4-2.0) mmol/L Calcium 8.9 (8.5-10.1) mg/dl Magnesium 1.6 L (1.8-2.4) mg/dl Total Bilirubin 0.5 (0.2-1) mg/dl AST 11 L (15-37) U/L ALT 14 (12-78) U/L Alkaline Phosphatase 74 (45-117) U/L Total Creatine Kinase 76 (39-308) U/L CK-MB (CK-2) 2.5 (0.5-3.6) ng/ml CK/CKMB % Calc 3.3 H (0-3.0) Total Protein 7.2 (6.4-8.2) gm/dl Albumin 3.1 L (3.4-5.0) gm/dl Globulin 4.1 H (2.5-4.0) gm/dl Albumin/Globulin Ratio 0.8 L (0.9-2) Urine Color Urine Appearance (Clear) Urine pH (4.5-7.5) Ur Specific [place] (1.000-1.030) Urine Protein (Negative) Urine Glucose (UA) (Negative) Urine Ketones (Negative) Urine Blood (Negative) Urine Nitrite (Negative) Urine Bilirubin (Negative) Urine Urobilinogen (Negative) Ur Leukocyte Esterase (Negative) Urine WBC (Auto) (0-5) /hpf Urine RBC (Auto) (0-4) /hpf U Hyaline Cast (Auto) (0-5) /lpf U Epithel Cells (Auto) (0-5) /lpf Urine Bacteria (Auto) (Negative) 05/28/20 05/28/20 Range/Units 04:34 05:20 WBC (4.8-10.8) K/uL RBC (4.7-6.1) M/uL Hgb (14.0-18.0) g/dL Hct (42-52) % MCV (80-100) fL MCH (25-34) pg MCHC (32-36) g/dL RDW Std Deviation (36.4-46.3) fL RDW Coeff of Felice (11.5-14.5) % Plt Count (130-400) K/uL MPV (7.4-10.4) fL Immature Gran % (Auto) % Neut % (Auto) % Lymph % (Auto) % [place] % (Auto) % Eos % (Auto) % Baso % (Auto) % Neut # (Auto) (1.4-6.5) K/uL Lymph # (Auto) (1.2-3.4) K/uL [place] # (Auto) (0.11-0.59) K/uL Eos # (Auto) (0-0.5) K/uL Baso # (Auto) (0-0.2) K/uL Immature Gran # (Auto) (0.00-0.02) K/uL PT (9.0-12.0) Seconds INR (0.9-1.1) APTT (21.0-31.0) Seconds PTT Ratio Sodium (136-145) mmol/L Potassium (3.5-5.1) mmol/L Chloride (98-107) mmol/L Carbon Dioxide (21-32) mmol/L Anion Gap (3-11) BUN (7-18) mg/dl Creatinine (0.6-1.4) mg/dl Est Cr Clr Drug Dosing ml/min Est GFR ( Amer) Est GFR (Non-Af Amer) BUN/Creatinine Ratio (10-20) Glucose (70-99) mg/dl POC Glucose 101 H (70-99) mg/dl Lactate (0.4-2.0) mmol/L Calcium (8.5-10.1) mg/dl Magnesium (1.8-2.4) mg/dl Total Bilirubin (0.2-1) mg/dl AST (15-37) U/L ALT (12-78) U/L Alkaline Phosphatase (45-117) U/L Total Creatine Kinase (39-308) U/L CK-MB (CK-2) (0.5-3.6) ng/ml CK/CKMB % Calc (0-3.0) Total Protein (6.4-8.2) gm/dl Albumin (3.4-5.0) gm/dl Globulin (2.5-4.0) gm/dl Albumin/Globulin Ratio (0.9-2) Urine Color [place] Urine Appearance Turbid A (Clear) Urine pH 5.0 (4.5-7.5) Ur Specific [place] 1.025 (1.000-1.030) Urine Protein 2+ H (Negative) Urine Glucose (UA) Negative (Negative) Urine Ketones Negative (Negative) Urine Blood 3+ H (Negative) Urine Nitrite Negative (Negative) Urine Bilirubin Negative (Negative) Urine Urobilinogen Negative (Negative) Ur Leukocyte Esterase 1+ H (Negative) Urine WBC (Auto) 5-10 H (0-5) /hpf Urine RBC (Auto) >30 H (0-4) /hpf U Hyaline Cast (Auto) 1-5 (0-5) /lpf U Epithel Cells (Auto) 20-30 H (0-5) /lpf Urine Bacteria (Auto) Negative (Negative) Imaging Data Radiologist's Impression: [place], [place] [phone] XRay Report Patient: ANASTACIO WOOTEN EAdmit Date: 05/28/20 MR#: [id number]: [address] Acct ID:[id number]: Date: 1935[facility] Zip: [place] [address] Age: 85Location: 2N Sex: MRoom/Bed: N280-2 Att Phy: Sim Ontiveros, MDDiagnosis: HYPOGLYCEMIA Cass Phy: Sim Blackman MDService Date: 05/28/20 Fam Phy:Interpreting Phy: Meek Green MD Admit Phy: Greta Downing DRayneORayne Ordering Phy: Vijay Schumacher MD cc: ~ XR chest 1V portable HISTORY: SEPSIS COMPARISON: Chest 11/24/2019. FINDINGS: No pneumothorax. No pleural effusions. The heart remains mildly enlarged. No new focal lung consolidations to suggest pneumonia. No evidence for pulmonary edema. Left-sided pacemaker/defibrillator is again noted. Degenerative changes within the shoulders. IMPRESSION: Stable mild cardiomegaly. ACT 112: Negative or not required by law. Electronically signed by: Meek Green M.D. 05/28/2020 9:28 AM Dictated: 05/28/20927 Transcribed: 05/28/20927 ECG Data Attestation: I personally reviewed and interpreted this ECG as follows: Indication: + weakness Rate (beats per minute): 73 Rhythm: + other (atrial sensed paced) ECG [place]: + Normal Comparison ECG Date: from (11/24/2019) Change: no significant change MDM Narrative This is an 85-year-old male who presents emergency department complaining of generalized weakness. Patient appears to have a urinary tract infection and was started on broad-spectrum antibiotics. Because he has been persistently hypoglycemic I did discuss the case with the hospitalist service who did admit the patient. Patient also has an elevated lactate. Patient and family are in agreement with the treatment plan. Patient was seen and evaluated as above in room C6. Review was performed of nursing notes and vital signs. I did review pertinent previous visits and patient history. After obtaining a thorough history and physical examination the above work up was performed. While in the department, I personally reevaluated the patient several times and each time the patient was found to be resting comfortably. The patient was educated upon management, educated upon todays findings/results, educated upon importance of follow up from today's visit, educated upon symptoms in which to return, had questions answered prior to discharge, verbalized understanding, and was discharged home in good condition. An order was placed for continuous cardiac monitoring. The monitor shows a rate of 71 with Normal SInus rhythm. The patient was evaluated during the global COVID-19 pandemic, and that d iagnosis was suspected/considered upon their initial presentation. Their evaluation, treatment and testing was consistent with current guidelines for patients who present with complaints or symptoms that may be related to COVID- 19. Impression & Plan Hypoglycemia Discharge Plan Visit Data Chief Complaint: Hypoglycemia Stated Complaint: LOW BLOOD SUGAR ED Provider: Vijay Schumacher Discharge Problem: Hypoglycemia Patient Disposition: Admitted As Inpatient Discharge Instructions Interventions: ED Discharge Assessment Last Done: 05/28/20 06:00
== END 2020-05-29 14:06 | disposition home or self-care (01) | DRG 638 ==
LOC: ED 03:17 → INTOOBSV 05:51 → SUATTDRO 05:51 → 2N 05:51